=== PATIENT | female | born 1930 | race Caucasian/White ===

== ENCOUNTER 2019-08-06 19:23 | Inpatient (IN) | payer OTHER, BC ==
[2019-08-06 19:26] VITALS: BMI 14.6
--- NOTE | 2019-08-06 19:44 | PDOC ---
History of Present Illness - General Chief Complaint: Injury Stated Complaint: FALL Time Seen by Provider: 08/06/19 19:44 Past History - Past Medical History Allergies/Adverse Reactions: Allergies Allergy/AdvReac Type Severity Reaction Status Date / Time No Known Allergies Allergy Verified 08/06/19 19:24 Home Medications: Ambulatory Orders Amox-Tr/K Cl [Augmentin 500-125mg Tablet -] 1 tab PO BID #10 tablet 09/05/13 Aspirin [ASA -] 81 mg PO DAILY 09/05/13 Citalopram Hydrobromide [Celexa -] 10 mg PO DAILY 09/05/13 Finasteride [Propecia] 1 mg PO DAILY 09/05/13 Pantoprazole Sodium [Protonix -] 40 mg PO DAILY 09/05/13 Rivaroxaban [Xarelto -] 20 mg PO DAILY 09/05/13 Acetaminophen [Tylenol .Regular Strength -] 650 mg PO Q6H PRN tablet 08/07/19 Cardiac Disorders: Yes (A. Fib) CVA: Yes COPD: No HTN: Yes Hypercholesterolemia: Yes - Surgical History Cholecystectomy: Yes - Immunization History Immunization Up to Date: Yes - Suicide/Smoking/Psychosocial Hx Smoking Status: No Smoking History: Never smoked Number of Cigarettes Smoked Daily: 0 *Physical Exam - Vital Signs Last Vital Signs Temp Pulse Resp BP Pulse Ox 97.5 F L 80 18 180/72 H 97 08/06/19 19:25 08/06/19 19:25 08/06/19 19:25 08/06/19 19:25 08/06/19 19:25 ED Treatment Course - LABORATORY CBC & Chemistry Diagram: 08/07/19 06:55 08/07/19 06:55 Medical Decision Making - Medical Decision Making HPI: 88yo F with PMH of HTN, ?afib (on Xarelto) complaining of fall. Patient was accompanying her who was being evaluated in our ED. Patient was sitting in a chair when she was reaching for her handbag hanging on her walker when the chair tipped and she hit her head against either the wall or the equipment on the wall. Denies loss of consciousness, nausea, or vomiting. Reports she outstretched her arms to brace her fall and is feeling bialteral chest wall pain below her breasts. Denies prodrome before falling: no weakness, dizziness, chest pain, or shortness of breath. No fevers or chills. PCP: Dr. Montague ROS: Constitutional: no fever, no chills HEENT: no throat pain, no dysphagia Cardiovascular: +chest wall pain, no palpitations Respiratory: no cough, no shortness of breath Gastrointestinal: no abdominal pain, no nausea Genitourinary: no dysuria, no hematuria Musculoskeletal: no myalgia, no arthralgia Skin: no rash, no itching Neurologic: no headache, no weakness PE: General: Awake, alert, and fully oriented, in no acute distress Head: No signs of trauma Eyes: EOMI, sclera anicteric ENT: Moist mucus membranes Neck: Normal ROM, supple, no midline tenderness Lungs: Lungs clear, Normal breath sounds Cardio: Regular rhythm, S1 and S2 present Abdomen: Soft, nontender Extremities: Normal range of motion, Distal pulses present SKIN: Warm, Dry, normal turgor Neurologic: Cranial nerves II through XII intact. Normal speech, sensation, strength, coordination. Deferred gait exam. ED Course/MDM: DDX including but not limited to mechanical fall, vasovagal syncope, cardiogenic syncope, metabolic derangement, anemia Labs, EKG Bilateral rib series [facility] spirom[facility] 08/06/19 19:44 CBC WBC 5.5 K/mm3 (4.0-10.0) 08/06/19 21:41 RBC 3.54 M/mm3 (3.60-5.2) L 08/06/19 21:41 Hgb 8.6 GM/dL (10.7-15.3) L 08/06/19 21:41 Hct 26.8 % (32.4-45.2) L 08/06/19 21:41 MCV 75.5 fl (80-96) L 08/06/19 21:41 MCH 24.3 pg (25.7-33.7) L D 08/06/19 21:41 MCHC 32.2 g/dl (32.0-36.0) 08/06/19 21:41 RDW 20.6 % (11.6-15.6) H 08/06/19 21:41 Plt Count 222 K/MM3 (134-434) 08/06/19 21:41 MPV 7.8 fl (7.5-11.1) 08/06/19 21:41 Absolute Neuts (auto) 3.8 K/mm3 (1.5-8.0) 08/06/19 21:41 Neutrophils % 69.3 % (42.8-82.8) 08/06/19 21:41 Lymphocytes % 18.1 % (8-40) D 08/06/19 21:41 Monocytes % 12.1 % (3.8-10.2) H D 08/06/19 21:41 Eosinophils % 0.4 % (0-4.5) 08/06/19 21:41 Basophils % 0.1 % (0-2.0) 08/06/19 21:41 Nucleated RBC % 0 % (0-0) 08/06/19 21:41 No leukocytosis CMP Sodium 138 mmol/L (136-145) 08/06/19 21:41 Potassium 3.9 mmol/L (3.5-5.1) 08/06/19 21:41 Chloride 102 mmol/L (98-107) 08/06/19 21:41 Carbon Dioxide 32 mmol/L (21-32) 08/06/19 21:41 Anion Gap 5 MMOL/L (8-16) L 08/06/19 21:41 BUN 17.1 mg/dL (7-18) 08/06/19 21:41 Creatinine 0.7 mg/dL (0.55-1.3) 08/06/19 21:41 Est GFR (CKD-EPI)AfAm 89.66 08/06/19 21:41 Est GFR (CKD-EPI)NonAf 77.36 08/06/19 21:41 Random Glucose 108 mg/dL (74-106) H 08/06/19 21:41 Calcium 9.9 mg/dL (8.5-10.1) 08/06/19 21:41 Total Bilirubin 0.4 mg/dL (0.2-1) 08/06/19 21:41 AST 27 U/L (15-37) 08/06/19 21:41 ALT 24 U/L (13-61) 08/06/19 21:41 Alkaline Phosphatase 94 U/L (45-117) 08/06/19 21:41 Troponin I < 0.02 ng/ml (0.00-0.05) 08/06/19 21:41 Total Protein 7.0 g/dl (6.4-8.2) 08/06/19 21:41 Albumin 3.4 g/dl (3.4-5.0) 08/06/19 21:41 Electrolytes unremarkable Tpn undetectable Pending CT reports Pending radiographs 08/06/19 23:20 EKG: rate 75, QTc 464, NSR CT head: "There is no evidence of acute intracranial hemorrhage, mass lesions or infarctions. 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 There is a moderate degree of diffuse cerebral atrophy with sulcal widening and ventricular dilatation. There is no evidence of fracture or acute bony pathology. IMPRESSION: No evidence of acute intracranial pathology. " CT cspine: "Sequential axial images were obtained through the cervical spine from the base of the skull to the thoracic inlet. Coronal and sagittal reconstructed images were also performed. There is no evidence of fracture, subluxation or acute bony abnormalities. Moderately severe degenerative arthritic changes are noted diffusely, most marked at C5-6. The spinal canal is widely patent with no evidence of cord compromise. IMPRESSION: Moderately severe degenerative arthritis with no fracture or acute pathology. " Pending rib series 08/07/19 00:06 Plan for admission for repeat head CT 08/07/19 00:[address] Baltazar who accepted patient for admission under Dr. Cueva 08/07/19 01:24 *DC/Admit/Observation/Transfer Diagnosis at time of Disposition: Fall Qualifiers: Encounter type: initial encounter Qualified Code(s): W19.XXXA - Unspecified fall, initial encounter - Discharge Dispostion Condition at time of disposition: Stable Decision to Admit order: Yes - Referrals - Patient Instructions - Post Discharge Activity
--- NOTE | 2019-08-06 19:52 | PDOC ---
Attending Attestation - Resident Resident Name: Mindy Christensen - ED Attending Attestation I have performed the following: I have examined & evaluated the patient, The case was reviewed & discussed with the resident, I agree w/resident's findings & plan - HPI HPI: 08/06/19 22:00 see resident hpi - Physicial Exam PE: 08/06/19 22:00 agree with resident exam - Medical Decision Making 08/06/19 22:01 88 yo female s/p mechanical fall in ED whilw accompanying her due to head trauma and current xarelto use pt will held for obs CT head/labs
[2019-08-06] MEDS ORDERED: ACETAMINOPHEN 1000 MG/100 ML VIAL (NON FORMULARY) IVPB ONE (20:05)
[2019-08-06 21:58] LABS: BASO % 0.1 % (0-2.0); EOS % 0.4 % (0-4.5); HEMATOCRIT 26.8 % (32.4-45.2); HEMOGLOBIN 8.6 GM/dL (10.7-15.3); LYMPH % 18.1 % (8-40); MCH 24.3 pg (25.7-33.7); MCHC 32.2 g/dl (32.0-36.0); MEAN CELL VOLUME 75.5 fl (80-96); MEAN PLT VOLUME 7.8 fl (7.5-11.1); MONO % 12.1 % (3.8-10.2); NEUT % 69.3 % (42.8-82.8); PLATELET COUNT 222 K/MM3 (134-434); RBC 3.54 M/mm3 (3.60-5.2); RDW 20.6 % (11.6-15.6); WHITE BLOOD COUNT 5.5 K/mm3 (4.0-10.0)
[2019-08-06] MEDS ORDERED: ACETAMINOPHEN INJECTION 100 ML IVPB ONE (22:07)
[2019-08-06 22:19] LABS: INR 1.09 (0.83-1.09); PROTHROMBIN TIME (PATIENT) 12.9 SEC (9.7-13.0)
[2019-08-06 22:27] LABS: ALBUMIN 3.4 g/dl (3.4-5.0); BILIRUBIN,TOTAL 0.4 mg/dL (0.2-1); BLOOD UREA NITROGEN 17.1 mg/dL (7-18); CALCIUM 9.9 mg/dL (8.5-10.1); CREATININE 0.7 mg/dL (0.55-1.3); POTASSIUM 3.9 mmol/L (3.5-5.1)
[2019-08-06 23:24] LABS: ANISOCYTOSIS 2+
[2019-08-06 23:28] LABS: PLATELET ESTIMATE ADEQUATE
[2019-08-07 00:25] VITALS: PULSE 78
[2019-08-07] MEDS ORDERED: ACETAMINOPHEN 325 MG TABLET (FP) PO PRN (03:18)
--- NOTE | 2019-08-07 03:19 | HP ---
CHIEF COMPLAINT:fall PCP:Dr. Montague HISTORY OF PRESENT ILLNESS: Patient is an 88 year old female with past medical history of A.fib (on Xarelto ) and HTN presented to the ED due to fall. Patient was accompanying her who was brought to our ED after a recent fall at home. While waiting for her , patient tried to reach for bag while hanging on to her walker when the chair she was sitting on tipped and patient subsequently fell, hitting the back of her head against the wall and her chest hitting on to another chair. Patient denies any headache, dizziness, chest pain, SOB, weakness or numbness before and after she fell, but reports bilateral chest wall pain below her breasts. Of note, patient also reported recent bilateral leg swelling that started about 3-4 months ago. Patient has not seen a doctor for a long time as she reports being busy taking care of her 's medical needs. Patient denies any fever , chills, headache, chest pain, SOB, abdominal pain, diarrhea, urinary symptoms. ER course was notable for: (1)Head CT: no acute intracranial pathology (2)Cervical CT: moderately severe degenerative arthritis with no fracture or acute pathology. (3) Recent Travel:denies PAST MEDICAL HISTORY: A. fib HTN PAST SURGICAL HISTORY: Left hip replacement Social History: Smoking: denies Alcohol:denies Drugs: denies Family History:unknown Allergies No Known Allergies Allergy (Verified 08/06/19 19:24) HOME MEDICATIONS: Home Medications Medication Instructions Recorded Amox-Tr/K Cl [Augmentin 500Mg 1 tab PO BID #10 tablet 09/05/13 Tablet] Aspirin [ASA -] 81 mg PO DAILY 09/05/13 Citalopram Hydrobromide [Celexa -] 10 mg PO DAILY 09/05/13 Finasteride [Propecia] 1 mg PO DAILY 09/05/13 Pantoprazole Sodium [Protonix] 40 mg PO DAILY 09/05/13 Rivaroxaban [Xarelto] 20 mg PO DAILY 09/05/13 REVIEW OF SYSTEMS CONSTITUTIONAL: Absent: fever, chills, diaphoresis, generalized weakness, malaise, loss of appetite, weight change HEENT: Absent: rhinorrhea, nasal congestion, throat pain, throat swelling, difficulty swallowing, mouth swelling, ear pain, eye pain, visual changes CARDIOVASCULAR: Absent: chest pain, syncope, palpitations, irregular heart rate, lightheadedness , peripheral edema RESPIRATORY: Absent: cough, shortness of breath, dyspnea with exertion, orthopnea, wheezing, stridor, hemoptysis GASTROINTESTINAL: Absent: abdominal pain, abdominal distension, nausea, vomiting, diarrhea, constipation, melena, hematochezia GENITOURINARY: Absent: dysuria, frequency, urgency, hesitancy, hematuria, flank pain, genital pain MUSCULOSKELETAL: Absent: myalgia, arthralgia, joint swelling, back pain, neck pain SKIN: Absent: rash, itching, pallor HEMATOLOGIC/IMMUNOLOGIC: Absent: easy bleeding, easy bruising, lymphadenopathy, frequent infections ENDOCRINE: Absent: unexplained weight gain, unexplained weight loss, heat intolerance, cold intolerance NEUROLOGIC: Absent: headache, focal weakness or paresthesias, dizziness, unsteady gait, seizure, mental status changes, bladder or bowel incontinence PSYCHIATRIC: Absent: anxiety, depression, suicidal or homicidal ideation, hallucinations. PHYSICAL EXAMINATION Vital Signs - 24 hr 08/06/19 08/06/19 08/07/19 19:25 19:30 00:24 Temperature 97.5 F L Pulse Rate 80 Pulse Rate [ 78 Right Radial] Respiratory 18 18 Rate Blood Pressure 180/72 H Blood Pressure 171/84 H [Left Arm] O2 Sat by Pulse 97 100 91 L Oximetry (%) GENERAL: Awake, alert, and fully oriented, in no acute distress. HEAD: Normal with no signs of trauma. EYES: PERRLA, EOMI, sclera anicteric, conjunctiva clear. EARS, NOSE, THROAT: Moist mucous membranes. NECK: Normal range of motion, supple without lymphadenopathy, JVD, or masses. LUNGS: Breath sounds equal, clear to auscultation bilaterally. HEART: Regular rate and rhythm, normal S1 and S2, +holosystolic murmur at RUSB/ LUSB ABDOMEN: Soft, nontender, not distended, normoactive bowel sounds. MUSCULOSKELETAL: Normal range of motion at all joints. UPPER EXTREMITIES: 2+ pulses, warm, well-perfused. No peripheral edema. LOWER EXTREMITIES: 2+ pulses, warm, well-perfused. +1 bilateral pitting edema, R >L NEUROLOGICAL: Cranial nerves II-XII intact. Normal speech. Gait not observed. PSYCHIATRIC: Cooperative. Good eye contact. Appropriate mood and affect. SKIN: Warm, dry, normal turgor. Laboratory Results - last 24 hr 08/06/19 08/06/19 08/06/19 21:41 21:41 21:41 WBC 5.5 RBC 3.54 L Hgb 8.6 L Hct 26.8 L MCV 75.5 L MCH 24.3 L D MCHC 32.2 RDW 20.6 H Plt Count 222 MPV 7.8 Absolute Neuts (auto) 3.8 Neutrophils % 69.3 Lymphocytes % 18.1 D Monocytes % 12.1 H D Eosinophils % 0.4 Basophils % 0.1 Nucleated RBC % 0 Platelet Estimate Adequate Anisocytosis 2+ Schistocytes 1+ PT with INR 12.90 INR 1.09 PTT (Actin FS) 35.0 Sodium 138 Potassium 3.9 Chloride 102 Carbon Dioxide 32 Anion Gap 5 L BUN 17.1 Creatinine 0.7 Est GFR (CKD-EPI)AfAm 89.66 Est GFR (CKD-EPI)NonAf 77.36 Random Glucose 108 H Calcium 9.9 Total Bilirubin 0.4 AST 27 ALT 24 Alkaline Phosphatase 94 Troponin I Total Protein 7.0 Albumin 3.4 08/06/19 21:41 WBC RBC Hgb Hct MCV MCH MCHC RDW Plt Count MPV Absolute Neuts (auto) Neutrophils % Lymphocytes % Monocytes % Eosinophils % Basophils % Nucleated RBC % Platelet Estimate Anisocytosis Schistocytes PT with INR INR PTT (Actin FS) Sodium Potassium Chloride Carbon Dioxide Anion Gap BUN Creatinine Est GFR (CKD-EPI)AfAm Est GFR (CKD-EPI)NonAf Random Glucose Calcium Total Bilirubin AST ALT Alkaline Phosphatase Troponin I < 0.02 Total Protein Albumin ASSESSMENT/PLAN: Patient is an 88 year old female with past medical history of A.fib (on Xarelto ) and HTN presented to the ED due to fall. #Mechanical Fall -Head CT and Cervical spine CT: no acute intracranial pathology -Rib xray done, pending final read -will give Tylenol PRN for pain -Incentive spirometry -Neuro checks -Fall precautions -Physical therapy -Consider repeat head CT in 24h #Bilateral LE swelling -will order Echo -unlikely DVT as patient in on Xarelto, but will order duplex #Microcytic anemia -baseline Hgb 10 (2012) -will further evaluate with FOBT, iron studies, retic count #Hypertension -continue home meds #Atrial fibrillation -Continue Xarelto 20mg daily #FEN -Not on any standing fluids -Electrolytes wnl, routine bmp monitoring -Sodium restricted diet #Prophylaxis -On Xarelto #Disposition -full code -admit to med surg Visit type - Emergency Visit Emergency Visit: Yes ED Registration Date: 08/07/19 Care time: The patient presented to the Emergency Department on the above date and was hospitalized for further evaluation of their emergent condition. - New Patient This patient is new to me today: Yes Date on this admission: 08/07/19 - Critical Care Critical Care patient: No ATTENDING PHYSICIAN STATEMENT I saw and evaluated the patient. I reviewed the resident's note and discussed the case with the resident. I agree with the resident's findings and plan as documented. SUBJECTIVE: OBJECTIVE: ASSESSMENT AND PLAN:
--- NOTE | 2019-08-07 04:08 | PN ---
Teaching Attending Note Name of Resident: Comfort Peterson ATTENDING PHYSICIAN STATEMENT I saw and evaluated the patient. I reviewed the resident's note and discussed the case with the resident. I agree with the resident's findings and plan as documented. SUBJECTIVE: 88 year old female with past medical history of A.fib (on Xarelto) and HTN was accompanying her who was brought to our ED after a recent fall at home, and sustained a fall in the ER herself. She said she fell out of her chair. Unable to describe her fall exactly to me. Reports some upper abdominal pain. Denied any palpitations, LOC, or trauma to head OBJECTIVE: Last Vital Signs Temp Pulse Resp BP Pulse Ox 97.5 F L 78 18 171/84 H 91 L 08/06/19 19:25 08/07/19 00:24 08/07/19 00:24 08/07/19 00:24 08/07/19 00:24 heent-atrauamtic neck- no midline tenderness abdomen - slight distention, soft, nt ext- some left hip pain, b/l pedal edema R>L Abnormal Lab Results 08/06/19 08/06/19 21:41 21:41 RBC 3.54 L Hgb 8.6 L Hct 26.8 L MCV 75.5 L MCH 24.3 L D RDW 20.6 H Monocytes % 12.1 H D Anion Gap 5 L Random Glucose [address]: no acute intracranial pathology Cervical CT: moderately severe degenerative arthritis with no fracture or acute pathology. ASSESSMENT AND PLAN: #S/p fall -Head CT and Cervical spine CT: no acute intracranial pathology. some left hip tenderness- r/o fracture -left hip xray t/o r/o fracture -Physical therapy request -bed rest -fall precautions #Bilateral LE swelling r>L -Echo -duplex u/s - r/o dvt #Atrial fibrillation -Continue Xarelto 20mg daily- dvt ppx too -consider to d/c ac as patient has fall and at risk for bleed #Microcytic anemia-chronic -ferrous sulfate -ascertain if pt had recent colonsocopy- might benefit from screening, despite advanced age
[2019-08-07 05:06] VITALS: BP 162/90; TEMP 98.3
[2019-08-07] MEDS ORDERED: ACETAMINOPHEN 325 MG TABLET (FP) ONE ×2 (05:19→14:06)
[2019-08-07 08:08] LABS: BASO % 0.4 % (0-2.0); EOS % 0.8 % (0-4.5); HEMATOCRIT 25.4 % (32.4-45.2); HEMOGLOBIN 8.2 GM/dL (10.7-15.3); LYMPH % 16.4 % (8-40); MCH 24.4 pg (25.7-33.7); MCHC 32.3 g/dl (32.0-36.0); MEAN CELL VOLUME 75.5 fl (80-96); MEAN PLT VOLUME 8.1 fl (7.5-11.1); MONO % 11.9 % (3.8-10.2); NEUT % 70.5 % (42.8-82.8); PLATELET COUNT 198 K/MM3 (134-434); RBC 3.37 M/mm3 (3.60-5.2); RDW 20.3 % (11.6-15.6); WHITE BLOOD COUNT 4.8 K/mm3 (4.0-10.0)
[2019-08-07 08:39] LABS: ALBUMIN 2.9 g/dl (3.4-5.0); BILIRUBIN,TOTAL 0.4 mg/dL (0.2-1); BLOOD UREA NITROGEN 16.1 mg/dL (7-18); CALCIUM 8.4 mg/dL (8.5-10.1); CREATININE 0.6 mg/dL (0.55-1.3); MAGNESIUM 2.3 mg/dL (1.8-2.4); PHOSPHOROUS 3.4 mg/dL (2.5-4.9); POTASSIUM 3.9 mmol/L (3.5-5.1)
--- NOTE | 2019-08-07 11:59 | ECHO ---
Name: MONROE HUGGINS Exam:Adult Echocardiogram Study Date: 08/07/2019 08:09 AM Age: 88 yrs Reason For Study: R/O CHF Height: 62 in Weight: 80 lb BSA: 1.3 m2 MMode/2D Measurements & Calculations IVSd: 1.2 cm Ao root diam: 2.6 cm LVIDd: 4.2 cm LA dimension: 4.3 cm LVIDs: 2.9 cm LVPWd: 0.78 cm EDV(Teich): 76.5 ml LVOT diam: 1.9 cm ESV(Teich): 31.6 ml LAV (MOD-bp): 72.0 ml Doppler Measurements & Calculations MV E max eduardo: 69.1 cm/sec Ao V2 max: 174.8 cm/sec MV A max eduardo: 28.6 cm/sec Ao max P.2 mmHg MV E/A: 2.4 Ao V2 mean: 125.5 cm/sec MV dec time: 0.15 sec Ao mean P.9 mmHg Ao V2 VTI: 42.9 cm ROCKY(I,D): 1.6 cm2 AI P1/2t: 695.0 msec ROCKY(V,D): 1.7 cm2 AI max eduardo: 497.5 cm/sec LV V1 max P.6 mmHg AI max P.0 mmHg LV V1 mean P.2 mmHg AI dec slope: 209.7 cm/sec2 LV V1 max: 106.8 cm/sec LV V1 mean: 70.0 cm/sec LV V1 VTI: 24.1 cm MR max eduardo: 583.0 cm/sec SV(LVOT): 68.5 ml MR max P.3 mmHg TR max eduardo: 260.9 cm/sec Med Peak E' Eduardo: 2.7 cm/sec TR max P.7 mmHg Med E/e': 25.2 Lat Peak E' Eduardo: 7.2 cm/sec Lat E/e': 9.5 Procedure A complete two-dimensional transthoracic echocardiogram was performed (2D, M-mode, Doppler and color flow Doppler). Left Ventricle The left ventricular size, thickness and function are normal. The left ventricular ejection fraction is normal. Ejection Fraction = 60-65%. The left ventricular wall motion is normal. Right Ventricle The right ventricle is normal in size and function. Atria The left atrium is moderately dilated. Right atrial size is normal. Mitral Valve There is mild mitral regurgitation. Tricuspid Valve There is mild tricuspid regurgitation. Right ventricular systolic pressure is normal. Aortic Valve No hemodynamically significant valvular aortic stenosis. Mild aortic regurgitation. Pulmonic Valve There is no pulmonic valvular regurgitation. Great Vessels The aortic root is normal size. Pericardium/Pleura There is no pericardial effusion. Interpretation Summary The left ventricular size, thickness and function are normal The right ventricle is normal in size and function. The left atrium is moderately dilated. There is mild mitral regurgitation. There is mild tricuspid regurgitation. Mild aortic regurgitation. MD Lele Degroot 08/07/2019 11:59 AM
--- NOTE | 2019-08-07 14:04 | EKG ---
Test Reason : Blood Pressure : / mmHG Vent. Rate : 075 BPM Atrial Rate : 075 BPM P-R Int : 136 ms QRS Dur : 076 ms QT Int : 416 ms P-R-T Axes : 020 017 028 degrees QTc Int : 464 ms NORMAL SINUS RHYTHM ANTERIOR INFARCT (CITED ON OR BEFORE 05-SEP-2013) ABNORMAL ECG WHEN COMPARED WITH ECG OF 05-SEP-2013 01:14, VENT. 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
--- NOTE | 2019-08-07 16:39 | DS ---
Physical Exam: SUBJECTIVE: Patient seen and examined; no new complaints. She is more orientated than her at [facility]. Her son and I met for some time and we discussed her functional status. 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 He wishes to take her back to her LONGTERM. She was cleared by PT. She was cleared by physical therapy and walked 60 feet. She has no swallowing difficulties. There is no syncopal elements to her fall. 10 sys ROS done and negative aside from HPI PMH, PSH, FH asked and noncontributory, social history reviewed (no tobacco, drugs, EtOH) OBJECTIVE: Vital Signs Period Temp Pulse Resp BP Sys/Armstrong Pulse Ox Last 24 Hr 97.5 F-98.3 F 78-80 18-18 162-180/72-90 89-100 PHYSICAL EXAM GENERAL: The patient is awake, alert, and fully oriented HEAD: Normal with no signs of trauma. EYES: PERRL, extraocular movements intact, ENT: Ears normal, nares patent, oropharynx NECK: Trachea midline, full range of motion, supple. LUNGS: Breath sounds equal, clear to auscultation bilaterall HEART: Regular rate and rhythm, S1, S2 without murmur, rub or gallop. ABDOMEN: Soft, nontender, nondistended, EXTREMITIES: 2+ pulses, warm, well-perfused, no edema. NEUROLOGICAL: Cranial nerves II through XII grossly intact, no FND noted, speech fluid PSYCH: Normal mood, normal affect. Organic dementia evident. SKIN: Warm, dry, normal turgor. LABS Laboratory Results - last 24 hr 08/06/19 08/06/19 08/06/19 21:41 21:41 21:41 WBC 5.5 RBC 3.54 L Hgb 8.6 L Hct 26.8 L MCV 75.5 L MCH 24.3 L D MCHC 32.2 RDW 20.6 H Plt Count 222 MPV 7.8 Absolute Neuts (auto) 3.8 Neutrophils % 69.3 Lymphocytes % 18.1 D Monocytes % 12.1 H D Eosinophils % 0.4 Basophils % 0.1 Nucleated RBC % 0 Platelet Estimate Adequate Anisocytosis 2+ Schistocytes 1+ Retic Count PT with INR 12.90 INR 1.09 PTT (Actin FS) 35.0 Sodium 138 Potassium 3.9 Chloride 102 Carbon Dioxide 32 Anion Gap 5 L BUN 17.1 Creatinine 0.7 Est GFR (CKD-EPI)AfAm 89.66 Est GFR (CKD-EPI)NonAf 77.36 Random Glucose 108 H Calcium 9.9 Phosphorus Magnesium Iron TIBC Iron Saturation Unsaturated IBC Ferritin Total Bilirubin 0.4 AST 27 ALT 24 Alkaline Phosphatase 94 Troponin I Total Protein 7.0 Albumin 3.4 TSH 08/06/19 08/07/19 08/07/19 21:41 06:55 06:55 WBC 4.8 RBC 3.37 L Hgb 8.2 L Hct 25.4 L MCV 75.5 L MCH 24.4 L MCHC 32.3 RDW 20.3 H Plt Count 198 MPV 8.1 Absolute Neuts (auto) 3.4 Neutrophils % 70.5 Lymphocytes % 16.4 Monocytes % 11.9 H Eosinophils % 0.8 D Basophils % 0.4 D Nucleated RBC % 0 Platelet Estimate Anisocytosis Schistocytes Retic Count PT with INR INR PTT (Actin FS) Sodium 138 Potassium 3.9 Chloride 104 Carbon Dioxide 28 Anion Gap 5 L BUN 16.1 Creatinine 0.6 Est GFR (CKD-EPI)AfAm 94.32 Est GFR (CKD-EPI)NonAf 81.38 Random Glucose 89 Calcium 8.4 L Phosphorus 3.4 Magnesium 2.3 Iron TIBC Iron Saturation Unsaturated IBC Ferritin Total Bilirubin 0.4 AST 23 ALT 17 Alkaline Phosphatase 82 Troponin I < 0.02 Total Protein 6.0 L Albumin 2.9 L TSH 2.05 08/07/19 08/07/19 06:55 06:55 WBC RBC Hgb Hct MCV MCH MCHC RDW Plt Count MPV Absolute Neuts (auto) Neutrophils % Lymphocytes % Monocytes % Eosinophils % Basophils % Nucleated RBC % Platelet Estimate Anisocytosis Schistocytes Retic Count 1.91 H PT with INR INR PTT (Actin FS) Sodium Potassium Chloride Carbon Dioxide Anion Gap BUN Creatinine Est GFR (CKD-EPI)AfAm Est GFR (CKD-EPI)NonAf Random Glucose Calcium Phosphorus Magnesium Iron 25 L TIBC 355 Iron Saturation 7 L Unsaturated IBC 330 H Ferritin 13.4 Total Bilirubin AST ALT Alkaline Phosphatase Troponin I Total Protein Albumin TSH HOSPITAL COURSE: Patient suddenly and unexpectedly improved and was able to be discharged home within 24 hours of admission Date of Admission:08/07/19 Date of Discharge: 08/07/19 Minutes to complete discharge: 33 Discharge Summary Reason For Visit: FALL Current Active Problems Fall (Acute) Condition: Guarded - Instructions - Home Medications Comprehensive Discharge Medication List: Ambulatory Orders Amox-Tr/K Cl [Augmentin 500Mg Tablet] 1 tab PO BID #10 tablet 09/05/13 Aspirin [ASA -] 81 mg PO DAILY 09/05/13 Citalopram Hydrobromide [Celexa -] 10 mg PO DAILY 09/05/13 Finasteride [Propecia] 1 mg PO DAILY 09/05/13 Pantoprazole Sodium [Protonix] 40 mg PO DAILY 09/05/13 Rivaroxaban [Xarelto] 20 mg PO DAILY 09/05/13 This patient is new to me today: Yes Date on this admission: 08/07/19 Emergency Visit: Yes ED Registration Date: 08/07/19 Care time: The patient presented to the Emergency Department on the above date and was hospitalized for further evaluation of their emergent condition. Critical Care patient: No - Discharge Referral Referred to [facility] No
== END 2019-08-07 17:00 | disposition home or self-care (01) | DRG 313 ==
LOC: JER 19:23 → JERBED 08-07 01:26
PROVIDERS: ADMIT Internal Medicine; ATTEND Internal Medicine
DX: R07.89 Other chest pain (principal); R10.9 Unspecified abdominal pain; I10 Essential (primary) hypertension; I48.91 Unspecified atrial fibrillation; M46.92 Unspecified inflammatory spondylopathy, cervical region; M79.89 Other specified soft tissue disorders; D50.9 Iron deficiency anemia, unspecified; W07.XXXA Fall from chair, initial encounter
CPT/HCPCS: 36415; 70450-TC; 71111-TC-FY; 72125-TC; 80053; 82728; 83540; 83550; 83735; 84100; 84443; 84484; 85025; 85044; 85610; 85730; 93005; 93010; 93306-TC; 93971-TC; 97116-GP; 97162-GP; 99284-25; J0131

== ENCOUNTER 2019-10-30 14:18 | Inpatient (IN) | payer OTHER, BC ==
--- NOTE | 2019-10-30 15:01 | PDOC ---
History of Present Illness - General Chief Complaint: Edema Stated Complaint: DEHYDATION, SWELLING OF THE FOOT Time Seen by Provider: 10/30/19 14:40 History Source: Patient Exam Limitations: No Limitations - History of Present Illness Initial Comments: Iliana Polanco is an 88 yo F w a hx of HTN and A-fib on xarelto who presents to the [facility] er BIBEMS from [address] [place] [address] because she has been experiencing 2 weeks of progressive bilateral leg swelling and edema. She states that she has also been extremely tired and short of breath doing her daily activities. She is most worried because her legs have never swelled up like this in the past and now her legs are painful and it is hard for her to walk. She states she is able to lie flat at night and has not needed more pillows recently. Denies having experienced any chest pain or shortness of breath at any point. She does endorse generalized fatigue and difficulty performing her routine physical activities. PCP: Dr. Montague Cards: Dr. Cardenas PSH: Left hip replacement Social Hx: Resident of [address] [place] [address]. Denies smoking, drinking, or other substance abuse Allergies: NKA, NKDA Past History - Past Medical History Allergies/Adverse Reactions: Allergies Allergy/AdvReac Type Severity Reaction Status Date / Time No Known Allergies Allergy Verified 10/30/19 15:47 Home Medications: Ambulatory Orders Citalopram Hydrobromide [Celexa -] 10 mg PO DAILY 09/05/13 Finasteride [Propecia] 1 mg PO DAILY 09/05/13 Rivaroxaban [Xarelto -] 20 mg PO DAILY 09/05/13 Acetaminophen [Tylenol .Regular Strength -] 650 mg PO Q6H PRN tablet 08/07/19 Cetirizine HCl [Zyrtec -] 10 mg PO HS 10/30/19 Famotidine 20 mg PO DAILY 10/30/19 Ferrous Sulfate 325 mg PO DAILY 10/30/19 Flecainide Acetate [Tambacor -] 50 mg PO BID 10/30/19 Hydrochlorothiazide 25 mg PO DAILY 10/30/19 Losartan Potassium 50 mg PO DAILY 10/30/19 Meloxicam [Mobic] 15 mg PO DAILY 10/30/19 Multivit-Min/FA/Lycopen/Lutein [Centrum Silver Tablet] 1 each PO DAILY 10/30/19 Cardiac Disorders: Yes (A. Fib) CVA: Yes COPD: No HTN: Yes Hypercholesterolemia: Yes - Surgical History Cholecystectomy: Yes - Immunization History Immunization Up to Date: Yes - Psycho Social/Smoking Cessation Hx Smoking Status: No Smoking History: Never smoked Number of Cigarettes Smoked Daily: 0 Review of Systems - Review of Systems Able to Perform ROS?: Yes Comments:: CONSTITUTIONAL: Present: Fatigue Absent: fever, no chills EYES: Absent: visual changes ENT: Absent: ear pain, no sore throat CARDIOVASCULAR: Absent: chest pain, no palpitations RESPIRATORY: Absent: cough, no SOB GI: Absent: abdominal pain, no nausea, no vomiting, no constipation, no diarrhea GENITOURINARY: Absent: dysuria, no frequency, no hematuria MUSKULOSKELETAL: Present: Arthralgia Absent: back pain, no myalgia SKIN: Present: rash NEURO: Absent: headache *Physical Exam - Physical Exam GENERAL: Skinny, elderly frail lady. Well developed, well nourished. Awake and alert. Mild distress. HEENT: Normocephalic, atraumatic. PERRLA, EOMI. No conjunctival pallor. Sclera are non- icteric. Moist mucous membranes. Oropharynx is clear. NECK: Supple. Full ROM. No JVD. CARDIOVASCULAR: Irregularly irregular. No murmurs, rubs, or gallops. Distal pulses are 2+ and symmetric. PULMONARY: There are bilateral crackles at the bases. Mild evidence of respiratory distress. Limited inspiration. No wheezing or rhonchi ABDOMINAL: Soft. Non-tender. Non-distended. No rebound or guarding. No organomegaly. Normoactive bowel sounds. MUSCULOSKELETAL Limited range of motion at all joints. No bony deformities or tenderness. No CVA tenderness. EXTREMITIES: 2+ edema in both legs. No cyanosis. No clubbing. No calf tenderness. SKIN: Left leg white scaly rash. Warm and dry. Normal capillary refill. No jaundice. NEUROLOGICAL: Alert, awake, appropriate. Cranial nerves 2-12 intact. Normal speech. PSYCHIATRIC: Sad affect. Cooperative. Good eye contact. Appropriate mood. ED Treatment Course - LABORATORY CBC & Chemistry Diagram: 10/30/19 15:25 10/30/19 15:25 - RADIOLOGY Radiograph Interpretation: CXR: Single view chest Chest pain to evaluate for infiltrate Comparison 09/05/2013 The lungs have changed and demonstrate increased markings since 2012. More recent imaging from 08/07 is reviewed demonstrating progression and worsening which could be due to developing fluid in the bases with compressive atelectasis. The left diaphragm is obscured with increased density in the left lower lobe. Left lower lobe pneumonia could have a similar appearance. Mild prominence of the interstitial markings. Congestive changes are seen. Impression: Congestive changes with bibasilar effusions the degree of atelectasis and consolidation is suspicious in the left lower lobe and is suspicious for pneumonia in the right clinical setting. Duplex: BILATERAL LOWER EXTREMITY VENOUS ULTRASOUND Clinical information given: evaluate for DVT The exam was performed utilizing compression, grayscale, color flow and doppler sonography. There is no sonographic evidence of deep vein thrombosis. If there is clinical concern for possible isolated calf DVT or if there is a clinical diagnosis of uncomplicated superficial thrombophlebitis, then correlation with close follow up sonography is suggested. IMPRESSION: No DVT is identified involving either leg. Please see above. BILATERAL LOWER EXTREMITY ARTERIAL DOPPLER ULTRASOUND Clinical information: evaluate for arterial occlusion The exam was performed utilizing grayscale and Doppler sonography. Evaluation of the right leg demonstrates no definite flow within the common femoral, superficial femoral, or posterior tibial arteries. There is decreased monophasic flow within the popliteal artery. Evaluation of the left leg demonstrates no definite flow within the popliteal or posterior tibial arteries. There is decreased monophasic flow within the lower third of the superficial femoral artery with somewhat decreased biphasic flow within the upper and middle thirds of the superficial femoral artery. Unremarkable triphasic flow is seen within the common femoral artery. 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 There is decreased monophasic flow within the right popliteal artery. There are also findings suggestive of occlusion of the left popliteal and posterior tibial arteries. There is decreased monophasic flow within the lower third of the left superficial femoral artery. Medical Decision Making - Medical Decision Making Iliana Polanco is an 88 yo F w a hx of HTN and A-fib on xarelto who presents to the [facility] from [facility] because she has been experiencing 2 weeks of progressive bilateral leg swelling and edema. She states that she has also been extremely tired and short of breath doing her daily activities. She is most worried because her legs have never swelled up like this in the past and now her legs are painful and it is hard for her to walk. She states she is able to lie flat at night and has not needed more pillows recently. Denies having experienced any chest pain or shortness of breath at any point. She does endorse generalized fatigue and difficulty performing her routine physical activities. Vital Signs Temp Pulse Resp BP Pulse Ox 97.7 F 87 18 153/88 100 10/30/19 14:52 10/30/19 14:52 10/30/19 14:52 10/30/19 14:52 10/30/19 14:52 DDx IBNLT: Heart failure, ACS, pneumothorax, pulm edema/pleural effusion, electrolyte/metabolic disturbance, DVT, UTI Plan: Labs, Urine, CXR, POCUS, EKG, Duplex, re-assess Labs: Elevated BNP suggestive of heart failure. Urine: Suggests UTI Pocus: b/l B-lines CXR: Impression: Congestive changes with bibasilar effusions the degree of atelectasis and consolidation is suspicious in the left lower lobe and is suspicious for pneumonia in the right clinical setting. EKG: QTc 515 Duplex: Suggests arterial occlusion - Vascular surgery paged Disposition: Tele admission Discharge - Discharge Information Problems reviewed: Yes Clinical Impression/Diagnosis: Heart failure Qualifiers: Heart failure type: unspecified Heart failure chronicity: unspecified Qualified Code(s): I50.9 - Heart failure, unspecified UTI (urinary tract infection) Qualifiers: Urinary tract infection type: site unspecified Hematuria presence: without hematuria Qualified Code(s): N39.0 - Urinary tract infection, site not specified Condition: Stable - Admission Yes - Follow up/Referral - Patient Discharge Instructions - Post Discharge Activity
[2019-10-30 15:42] LABS: BASO % 0.2 % (0-2.0); EOS % 0.4 % (0-4.5); HEMATOCRIT 31.1 % (32.4-45.2); HEMOGLOBIN 9.9 GM/dL (10.7-15.3); LYMPH % 14.5 % (8-40); MCH 26.3 pg (25.7-33.7); MCHC 31.7 g/dl (32.0-36.0); MEAN CELL VOLUME 82.8 fl (80-96); MEAN PLT VOLUME 8.9 fl (7.5-11.1); MONO % 12.2 % (3.8-10.2); NEUT % 72.7 % (42.8-82.8); PLATELET COUNT 152 K/MM3 (134-434); RBC 3.76 M/mm3 (3.60-5.2); RDW 25.3 % (11.6-15.6); WHITE BLOOD COUNT 5.8 K/mm3 (4.0-10.0)
[2019-10-30 16:19] LABS: ALBUMIN 3.2 g/dl (3.4-5.0); ALK PHOS 144 U/L (45-117); ANION GAP 8 MMOL/L (8-16); BILIRUBIN,TOTAL 0.7 mg/dL (0.2-1); BLOOD UREA NITROGEN 13.8 mg/dL (7-18); CALCIUM 9.1 mg/dL (8.5-10.1); CHLORIDE 104 mmol/L (98-107); CO2 25 mmol/L (21-32); CREATININE 0.5 mg/dL (0.55-1.3); GLUCOSE,RANDOM 82 mg/dL (74-106); MAGNESIUM 2.7 mg/dL (1.8-2.4); N-TERMINAL BNP 9497.5 pg/ml (5-450); POTASSIUM 3.9 mmol/L (3.5-5.1); SGOT/AST 42 U/L (15-37); SGPT/ALT 95 U/L (13-61); SODIUM 137 mmol/L (136-145); TOT PROT 6.6 g/dl (6.4-8.2)
--- NOTE | 2019-10-30 16:22 | PDOC ---
Attending Attestation - Resident Resident Name: Michi Laws - ED Attending Attestation I have performed the following: I have examined & evaluated the patient, The case was reviewed & discussed with the resident, I agree w/resident's findings & plan - HPI HPI: 10/30/19 16:21 Iliana Polanco is an 88 yo F w a hx of HTN and A-fib on xarelto who presents to the [facility] er [facility]S from [facility] because she has been experiencing 2 weeks of progressive bilateral leg swelling and edema, a/w dyspnea on exertion and abdominal bloating. She states that she has also been extremely tired/ malaise and short of breath doing her daily activities. No orthopnea, She states she is able to lie flat at night and has not needed more pillows recently. no f/c, no chest pain, syncope or dizziness. 10/30/19 16:24 10/30/19 18:04 - Physicial Exam PE: 10/30/19 16:22 Agree with the resident's HPI and PE as documented in the electronic medical record. NAD, well appearing, EOMI, PERRL, nl conjunctiva, anicteric; neck supple. lungs with bilateral crackles. RRR, abdomen soft nontender. no rebound, guarding. Back nontender. SY x4, no focal neuro deficits. +bilateral pitting peripheral edema. normal color for ethnicity, WWP. +mild calf tenderness. 10/30/19 18:04 - Medical Decision Making 10/30/19 16:22 Vital Signs Temp Pulse Resp BP Pulse Ox 97.7 F 87 18 153/88 100 10/30/19 14:52 10/30/19 14:52 10/30/19 14:52 10/30/19 14:52 10/30/19 14:52 Differential diagnosis includes lymphedema, DVT, CHF, renal insufficiency Laboratory results compare with previous with baseline anemia no acute changes, electrolytes are normal, creatinine is normal BNP is elevated greater than 9497 cxr with bilateral pulm vascular congestion lasix IV 40mg x1, cr ok. treating as new onset CHF ua prelim infection, f/u cultures, IV ceftriaxone x 1 dose now prelim duplex neg for DVT, There is concern for occlusion of the right [employer], SFA, TDP DISPLAYS ANALYST with decreased monophasic flow within the right popliteal artery, also occlusion of the left popliteal artery, left posterior tibial arteries, decreased monophasic flow within the lower third of the left SFA We will consult vascular for arterial occlusions, she is neurovascularly intact , warm and well perfused, this is likely chronic but will need vascular evaluation and intervention. Dr Ortega environmental technical officer admit to tele, CHF, PVD, cards cs, medical management, diuresis, supportive care. 10/30/19 16:26 10/30/19 18:05 10/30/19 18:05 10/30/19 18:07
[2019-10-30 16:23] LABS: EPI CELLS 1.4 /HPF (0-5/HPF); HYALINE CASTS 3 /lpf (0-8); PH,URINE 6.5 (5.0-8.0); URINE APPEARANCE CLEAR; URINE BACTERIA 2244.9 /hpf (NEGATIVE); URINE BILIRUBIN NEGATIVE (NEGATIVE); URINE COLOR YELLOW; URINE GLUCOSE (UA) NEGATIVE (NEGATIVE); URINE KETONE NEGATIVE (NEGATIVE); URINE LEUK ESTERASE TRACE (NEGATIVE); URINE NITRITE POSITIVE (NEGATIVE); URINE PROTEIN NEGATIVE (NEGATIVE); URINE RBC 5 /hpf (0-4); URINE WBC 3 /hpf (0-5)
[2019-10-30] MEDS ORDERED: CEFTRIAXONE 1,000 MG in DEXTROSE 5%-WATER - 50 ML IVPB ONE (16:26)
[2019-10-30] MEDS ORDERED: FUROSEMIDE 40 MG/4 ML INJECTABLE VIAL IVPUSH ONE (16:26)
[2019-10-30 16:30] LABS: INR 1.43 (0.83-1.09); PROTHROMBIN TIME (PATIENT) 16.9 SEC (9.7-13.0)
[2019-10-30 16:32] LABS: ACTIVATED PTT 35.8 SECONDS (25.2-36.5)
[2019-10-30 16:51] LABS: ANISOCYTOSIS 3+; MACROCYTOSIS 0; OVALOCYTE 1+; PLATELET ESTIMATE DECREASED
[2019-10-30] MEDS ORDERED: cefTRIAXone SODIUM 1 GM VIAL ONE (16:53)
[2019-10-30] MEDS ORDERED: FUROSEMIDE 40 MG/4 ML INJECTABLE VIAL ONE (16:53)
[2019-10-30] MEDS ORDERED: CEFTRIAXONE 1 GM/50 ML BAG ONE (16:55)
--- NOTE | 2019-10-30 17:22 | HP ---
<Sasha Rod - Last Filed: 10/31/19 06:49> Hospitalist Medicine Admission 88 y/o F with PMH HTN, afib (on xarelto), chronic thrombocytopenia, CVA 2011, GERD, osteoperosis, actinic keratoses, carotid stenosis (75% occlusion last one) , s/p fall w/ head laceration 2017, who presents for LE edema. States that her sx started 1.5 days ago, without inciting fx. Have been so swollen that she has had trouble ambulating. Usually she uses a cane. Denies orthopnea, and has always slept on "few pillows, never flat." Denies recent salt intake or dietary changes; "I love to eat salad." Only other sx is dysuria, not a/w frequency or suprapubic tenderness. Denies RUIZ, fever, chills, chest pain or pressure or changes in bowel function. Has a cardio she follows with. Never has been told she has CHF. Denies water pills other than being on HCTZ. Has lived at [address] [place] [address] for 6 yrs. In the ED, pt was diuresed with 40mg lasix IVP x 1 and went for a duplex of LE to r/o DVT and duplex LE. Result pending. PMH: as above PsxH: Anny leavitt hip replacement meds: as in chart allergies: NKDA FH: denies SH: never smoked, no alcohol or drug use Allergies No Known Allergies Allergy (Verified 10/30/19 15:47) HOME MEDICATIONS: Home Medications Medication Instructions Recorded Citalopram Hydrobromide [Celexa -] 10 mg PO DAILY 09/05/13 Finasteride [Propecia] 1 mg PO DAILY 09/05/13 Rivaroxaban [Xarelto -] 20 mg PO DAILY 09/05/13 Acetaminophen [Tylenol .Regular 650 mg PO Q6H PRN tablet 08/07/19 Strength -] Cetirizine HCl [Zyrtec -] 10 mg PO HS 10/30/19 Famotidine 20 mg PO DAILY 10/30/19 Ferrous Sulfate 325 mg PO DAILY 10/30/19 Flecainide Acetate [Tambacor -] 50 mg PO BID 10/30/19 Hydrochlorothiazide 25 mg PO DAILY 10/30/19 Losartan Potassium 50 mg PO DAILY 10/30/19 Meloxicam [Mobic] 15 mg PO DAILY 10/30/19 Multivit-Min/FA/Lycopen/Lutein 1 each PO DAILY 10/30/19 [Centrum Silver Tablet] PHYSICAL EXAMINATION Vital Signs - 24 hr 10/30/19 10/30/19 14:52 16:00 Temperature 97.7 F Pulse Rate 87 Pulse Rate [ 85 Radial] Respiratory 18 20 Rate Blood Pressure 153/88 Blood Pressure 172/83 H [Right Arm] O2 Sat by Pulse 100 96 Oximetry (%) GENERAL: AAO x 2 (name, place). pleasant, in NAD HEAD: Normal with no signs of trauma. EYES: Pupils equal, round and reactive to light, extraocular movements intact, sclera anicteric, conjunctiva clear. EARS, NOSE, THROAT: Ears normal, nares patent, oropharynx clear without exudates. Moist mucous membranes. NECK: Normal range of motion, supple LUNGS: mild crackles appreciated at bases. HEART: +irreg irreg. no r/m/g ABDOMEN: Soft, nontender, not distended, normoactive bowel sounds LOWER EXTREMITIES: 1+ pulses, well-perfused. 2+ pitting edema b/l NEUROLOGICAL: Cranial nerves II-XII intact. Normal speech. Normal gait. PSYCHIATRIC: Cooperative. Laboratory Results 10/30/19 10/30/19 10/30/19 15:25 15:25 15:25 WBC 5.8 Hgb 9.9 L Hct 31.1 L D Plt Count 152 D PT with INR 16.90 H INR 1.43 H Sodium 137 Potassium 3.9 Chloride 104 Carbon Dioxide 25 Anion Gap 8 BUN 13.8 Creatinine 0.5 L AST 42 H ALT 95 H Alkaline Phosphatase 144 H Troponin I < 0.02 B-Natriuretic Peptide 9497.5 H Urine Blood Ur Leukocyte Esterase 10/30/19 16:08 Troponin I B-Natriuretic Peptide Urine Blood 1+ H Urine Nitrite Positive H Urine Bilirubin Negative Urine Urobilinogen 1.0 Ur Leukocyte Esterase Trace Urine Bacteria (Auto) 2244.9 EKG: nsr, rate in 80's, w/ TWI in lateral leads, new from previous. qtc 515ms CXR: congestive changes, bibasilar effusions, possible PNA on R ECHO 08/07/19: LVSF normal, LA moderately dilated, mild MR, TR, mild AR Duplex LE, art duplex LE: occlusion of R common fem, superficial fem and posterior tibial a. there is decreased monophasic flow in the R popliteal artery. L leg no definite flow in popliteal or posterior tibial arteries. decreased monophasic flow in lower third superficial femoral a. wih somewhat decreased biphasic flow in upper and middle thirds of the superficial femoral a. unremarkable triphasic flow in common femoral a. ASSESSMENT/PLAN: 88 y/o F with PMH HTN, afib (on xarelto), chronic thrombocytopenia, CVA 2011, GERD, osteoperosis, actinic keratoses, carotid stenosis (75% occlusion last one) , s/p fall w/ head laceration 2017, who presents for LE edema. #LE edema r/o CHF -with crackles, elevated BNP ~9000, LE edema may be 2/2 CHF -c/w lasix 40mg IVP qd , likely lasix naive. follow na control/weights/ strict i /o -ECHO done recently 07/2019, no need to repeat -will also f/u duplex LE, arterial duplex - with decreased flow - will consult vascular -trend trops , first is (-), lipid profile, a1c, tsh -Cardio consult: Dr. Barber #UTI -with +UA, f/u UCx. with dysuria -c/w rocephin (Day 1) #HTN- uncontrolled -c/w losartan -hold HCTZ, in setting of lasix to avoid over-diuresis #afib -c/w flecainide for control -c/w xarelto #GERD -c/w pepcid #KENDRICK -c/w ferrous sulfate #F/E/N no IVF at this time, as w/ hx CHF continue to follow lytes na controlled diet #PPX DVT: on xarelto. #Dispo admit to tele from [facility] Visit type - Emergency Visit Emergency Visit: Yes ED Registration Date: 10/30/19 Care time: The patient presented to the Emergency Department on the above date and was hospitalized for further evaluation of their emergent condition. - New Patient This patient is new to me today: Yes Date on this admission: 10/30/19 - Critical Care Critical Care patient: No <Sunday Noyola - Last Filed: 11/01/19 08:18> Seen and examined; I agree with the above documentation as outlined by the resident aside from as supplemented by myself below. All historical and pierce PE findings along side diagnostics independently verified. Case was discussed at length with the resident team. All questions were answered. Agree with above history; patient is chronically deconditioned and chronic FTT ( 15 BMI) presenting with likely CHF excerbation. She has history of permanent AF and ? PAD with some potential claudication symptoms. Suboptimal historian but not frankly altered at this juncture. ? UTI? noted by ER on empiric rochephin. CV consult is pending-appreciate expert management. 10 sys ROS done and negative aside from HPI. HOME MEDICATIONS: Home Medications Medication Instructions Recorded Citalopram Hydrobromide [Celexa -] 10 mg PO DAILY 09/05/13 Finasteride [Propecia] 1 mg PO DAILY 09/05/13 Rivaroxaban [Xarelto -] 20 mg PO DAILY 09/05/13 Acetaminophen [Tylenol .Regular 650 mg PO Q6H PRN tablet 08/07/19 Strength -] Cetirizine HCl [Zyrtec -] 10 mg PO HS 10/30/19 Famotidine 20 mg PO DAILY 10/30/19 Ferrous Sulfate 325 mg PO DAILY 10/30/19 Flecainide Acetate [Tambacor -] 50 mg PO BID 10/30/19 Hydrochlorothiazide 25 mg PO DAILY 10/30/19 Losartan Potassium 50 mg PO DAILY 10/30/19 Meloxicam [Mobic] 15 mg PO DAILY 10/30/19 Multivit-Min/FA/Lycopen/Lutein 1 each PO DAILY 10/30/19 [Centrum Silver Tablet] REVIEW OF SYSTEMS 10 sys ROS done and negative aside from HPI PHYSICAL EXAMINATION Vital Signs - 24 hr 10/30/19 10/30/19 10/30/19 14:52 16:00 17:43 Temperature 97.7 F Pulse Rate 87 Pulse Rate [ 92 H Left Radial] Pulse Rate [ 85 Radial] Respiratory 18 20 16 Rate Blood Pressure 153/88 Blood Pressure 172/83 H 168/98 [Right Arm] O2 Sat by Pulse 100 96 Oximetry (%) 10/30/19 10/31/19 10/31/19 18:49 07:03 07:17 Temperature 98.3 F Pulse Rate Pulse Rate [ 89 Left Radial] Pulse Rate [ Radial] Respiratory 16 18 Rate Blood Pressure Blood Pressure 151/84 [Right Arm] O2 Sat by Pulse 95 95 96 Oximetry (%) 10/31/19 10:10 Temperature 98.5 F Pulse Rate Pulse Rate [ 77 Left Radial] Pulse Rate [ Radial] Respiratory 18 Rate Blood Pressure Blood Pressure 147/87 [Right Arm] O2 Sat by Pulse 99 Oximetry (%) NAD, AAO, on O2, resting in bed NC AT EOMI PERRLA NT ND +BS CN2-12 wnl, no fnd Normal mood, appropriate behavior Irregular HR, +s1/2 Laboratory Results - last 24 hr 10/30/19 10/30/19 10/30/19 15:25 15:25 15:25 WBC 5.8 RBC 3.76 Hgb 9.9 L Hct 31.1 L D MCV 82.8 MCH 26.3 MCHC 31.7 L RDW 25.3 H Plt Count 152 D MPV 8.9 Absolute Neuts (auto) 4.2 Neutrophils % 72.7 Lymphocytes % 14.5 Monocytes % 12.2 H Eosinophils % 0.4 Basophils % 0.2 Nucleated RBC % 0 Hypochromia 0 Platelet Estimate Decreased Polychromasia 0 Poikilocytosis 0 Anisocytosis 3+ Microcytosis 2+ Macrocytosis 0 Ovalocytes 1+ Schistocytes 1+ PT with INR 16.90 H INR 1.43 H PTT (Actin FS) 35.8 Sodium Potassium Chloride Carbon Dioxide Anion Gap BUN Creatinine Est GFR (CKD-EPI)AfAm Est GFR (CKD-EPI)NonAf Random Glucose Hemoglobin A1c % Calcium Phosphorus Magnesium Total Bilirubin AST ALT Alkaline Phosphatase Creatine Kinase Cancelled Troponin I Cancelled B-Natriuretic Peptide Total Protein Albumin Triglycerides Cholesterol Total LDL Cholesterol HDL Cholesterol TSH Urine Color Urine Appearance Urine pH Ur Specific [place] Urine Protein Urine Glucose (UA) Urine Ketones Urine Blood Urine Nitrite Urine Bilirubin Urine Urobilinogen Ur Leukocyte Esterase Urine WBC (Auto) Urine RBC (Auto) Urine Casts (Auto) U Epithel Cells (Auto) Urine Bacteria (Auto) 10/30/19 10/30/19 10/30/19 15:25 16:08 19:30 WBC RBC Hgb Hct MCV MCH MCHC RDW Plt Count MPV Absolute Neuts (auto) Neutrophils % Lymphocytes % Monocytes % Eosinophils % Basophils % Nucleated RBC % Hypochromia Platelet Estimate Polychromasia Poikilocytosis Anisocytosis Microcytosis Macrocytosis Ovalocytes Schistocytes PT with INR INR PTT (Actin FS) Sodium 137 Potassium 3.9 Chloride 104 Carbon Dioxide 25 Anion Gap 8 BUN 13.8 Creatinine 0.5 L Est GFR (CKD-EPI)AfAm 100.15 Est GFR (CKD-EPI)NonAf 86.41 Random Glucose 82 Hemoglobin A1c % Calcium 9.1 Phosphorus Magnesium 2.7 H Total Bilirubin 0.7 AST 42 H ALT 95 H Alkaline Phosphatase 144 H Creatine Kinase 94 Troponin I < 0.02 B-Natriuretic Peptide 9497.5 H Total Protein 6.6 Albumin 3.2 L Triglycerides Cholesterol Total LDL Cholesterol HDL Cholesterol TSH 1.70 Urine Color Yellow Urine Appearance Clear Urine pH 6.5 Ur Specific [place] 1.015 Urine Protein Negative Urine Glucose (UA) Negative Urine Ketones Negative Urine Blood 1+ H Urine Nitrite Positive H Urine Bilirubin Negative Urine Urobilinogen 1.0 Ur Leukocyte Esterase Trace Urine WBC (Auto) 3 Urine RBC (Auto) 5 Urine Casts (Auto) 3 U Epithel Cells (Auto) 1.4 Urine Bacteria (Auto) 2244.9 10/30/19 10/30/19 10/30/19 19:30 19:30 19:30 WBC RBC Hgb Hct MCV MCH MCHC RDW Plt Count MPV Absolute Neuts (auto) Neutrophils % Lymphocytes % Monocytes % Eosinophils % Basophils % Nucleated RBC % Hypochromia Platelet Estimate Polychromasia Poikilocytosis Anisocytosis Microcytosis Macrocytosis Ovalocytes Schistocytes PT with INR INR PTT (Actin FS) Sodium Potassium Chloride Carbon Dioxide Anion Gap BUN Creatinine Est GFR (CKD-EPI)AfAm Est GFR (CKD-EPI)NonAf Random Glucose Hemoglobin A1c % 4.7 Calcium Phosphorus Magnesium Total Bilirubin AST ALT Alkaline Phosphatase Creatine Kinase 73 Troponin I < 0.02 B-Natriuretic Peptide Total Protein Albumin Triglycerides 47 Cholesterol 88 Total LDL Cholesterol 37 HDL Cholesterol 43 TSH Urine Color Urine Appearance Urine pH Ur Specific [place] Urine Protein Urine Glucose (UA) Urine Ketones Urine Blood Urine Nitrite Urine Bilirubin Urine Urobilinogen Ur Leukocyte Esterase Urine WBC (Auto) Urine RBC (Auto) Urine Casts (Auto) U Epithel Cells (Auto) Urine Bacteria (Auto) 10/31/19 10/31/19 06:07 06:07 WBC 4.8 RBC 3.29 L Hgb 8.7 L Hct 26.6 L MCV 81.0 MCH 26.5 MCHC 32.8 RDW 24.1 H Plt Count 138 MPV 8.4 Absolute Neuts (auto) 3.5 Neutrophils % 71.6 Lymphocytes % 14.5 Monocytes % 13.2 H Eosinophils % 0.5 Basophils % 0.2 Nucleated RBC % 0 Hypochromia Platelet Estimate Polychromasia Poikilocytosis Anisocytosis Microcytosis Macrocytosis Ovalocytes Schistocytes PT with INR INR PTT (Actin FS) Sodium 141 Potassium 3.1 L Chloride 106 Carbon Dioxide 26 Anion Gap 8 BUN 13.8 Creatinine 0.6 Est GFR (CKD-EPI)AfAm 94.32 Est GFR (CKD-EPI)NonAf 81.38 Random Glucose 108 H Hemoglobin A1c % Calcium 8.2 L Phosphorus 3.1 Magnesium 2.0 Total Bilirubin AST ALT Alkaline Phosphatase Creatine Kinase Troponin I B-Natriuretic Peptide Total Protein Albumin Triglycerides Cholesterol Total LDL Cholesterol HDL Cholesterol TSH Urine Color Urine Appearance Urine pH Ur Specific [place] Urine Protein Urine Glucose (UA) Urine Ketones Urine Blood Urine Nitrite Urine Bilirubin Urine Urobilinogen Ur Leukocyte Esterase Urine WBC (Auto) Urine RBC (Auto) Urine Casts (Auto) U Epithel Cells (Auto) Urine Bacteria (Auto) Echo pending EKG reviewed CXR reviewed ER Tele noted ASSESSMENT/PLAN: Presents with CHF exacerbation pending CV consultation and chronic poor functional status. discussing goals of care with family and will diurese and monitor on the medical floor. Problems include: -HFpEF exacerbation (Pre and post, FU CV recs, tele, Mg and K optimization and fluid and salt controlled diet with strict Is and Os and QD weights. FU with CV ). -Hx HTN (Monitor) -Prolonged QTc (Mg is OK, K is low. Repleted and continue with tele. 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 Planning to discuss the goals of care with the patient's family. -Hx CVA -Hx Actinic Keratosis -Hx Carotid A. Stenosis -Mechanical falls at home -Hx GERD Full Code ATTENDING PHYSICIAN STATEMENT I saw and evaluated the patient. I reviewed the resident's note and discussed the case with the resident. I agree with the resident's findings and plan as documented. SUBJECTIVE: OBJECTIVE: ASSESSMENT AND PLAN:
[2019-10-30] MEDS ORDERED: LOSARTAN POTASSIUM 50 MG TABLET (FP) ONE (17:46)
[2019-10-30] MEDS: LOSARTAN POTASSIUM 50 MG TABLET (FP) PO SCH (17:57)
[2019-10-30 20:37] LABS: CHOLESTEROL 88 mg/dL (50-200); HDL CHOLESTEROL 43 mg/dL (40-60); LDL CHOLESTEROL (ONLY SJRH) 37 mg/dL (5-100); TRIGLYCERIDES 47 mg/dL (0-150)
[2019-10-31] MEDS: FLECAINIDE ACETATE 50 MG TABLET PO SCH ×4 (04:44→23:09)
[2019-10-31 06:23] LABS: BASO % 0.2 % (0-2.0); EOS % 0.5 % (0-4.5); HEMATOCRIT 26.6 % (32.4-45.2); HEMOGLOBIN 8.7 GM/dL (10.7-15.3); LYMPH % 14.5 % (8-40); MCH 26.5 pg (25.7-33.7); MCHC 32.8 g/dl (32.0-36.0); MEAN PLT VOLUME 8.4 fl (7.5-11.1); MONO % 13.2 % (3.8-10.2); NEUT % 71.6 % (42.8-82.8); PLATELET COUNT 138 K/MM3 (134-434); RBC 3.29 M/mm3 (3.60-5.2); RDW 24.1 % (11.6-15.6); WHITE BLOOD COUNT 4.8 K/mm3 (4.0-10.0)
[2019-10-31 06:52] LABS: BLOOD UREA NITROGEN 13.8 mg/dL (7-18); CALCIUM 8.2 mg/dL (8.5-10.1); CREATININE 0.6 mg/dL (0.55-1.3); PHOSPHOROUS 3.1 mg/dL (2.5-4.9); POTASSIUM 3.1 mmol/L (3.5-5.1)
[2019-10-31] MEDS ORDERED: ONDANSETRON 8 MG TABLET (FP) PO ONE (07:25)
--- NOTE | 2019-10-31 09:43 | CON.CARD ---
Consult Consult Specialty:: Cardiology Referred by:: Dr. Noyola Reason for Consultation:: CHF - History of Present Illness Chief Complaint: Fatigue and leg edema History of Present Illness: 88 y/o F with PMH HTN, afib (on xarelto), chronic thrombocytopenia, CVA 2011, GERD, osteoperosis, actinic keratoses, carotid stenosis (75% occlusion last one) , s/p fall w/ head laceration 2018, who presents for LE edema. States that her sx started 1.5 days ago, without inciting fx. Have been so swollen that she has had trouble ambulating. Usually she uses a cane. Denies orthopnea, and has always slept on "few pillows, never flat." Denies recent salt intake or dietary changes; "I love to eat salad." Only other sx is dysuria, not a/w frequency or suprapubic tenderness. Denies RUIZ, fever, chills, chest pain or pressure or changes in bowel function. Has a cardio she follows with. Never has been told she has CHF. Denies water pills other than being on HCTZ. Has lived at [address] [place] [address] for 6 yrs. In the ED, pt was diuresed with 40mg lasix IVP x 1 and went for a duplex of LE . PMH: as above PsxH: lap dede, L hip replacement meds: as in chart allergies: NKDA FH: denies SH: never smoked, no alcohol or drug use - History Source History Provided By: Patient - Past Medical History Cardio/Vascular: Yes: AFIB, CHF Pulmonary: No: Asthma, Bronchitis, Cancer, COPD, O2 Dependent, Pneumonia, Previously Intubated, Pulmonary Embolus, Pulmonary Fibrosis, Sleep Apnea, Other Gastrointestinal: No: Ascites, Cancer, Constipation, Crohn's Disease, Diverticulitis, Diverticulosis, Esophageal Varices, Gastritis, GERD, GI Bleed, Hemorrhoids, Hiatal Hernia, Inflamatory Bowel Disease, Irritable Bowel Disease, Pancreatitis, Peptic Ulcer Disease, Ulcerative Colitis, Other Hepatobiliary: No: Cirrhosis, Cholelithiasis, Cholecystitis, Choledocholithiasis , Hepatitis A, Hepatitis B, Hepatitis C, Other Renal/: No: Renal Failure, Renal Inusuff, BPH, Cancer, Hematuria, Hemodialysis , Neurogenic Bladder, Renal Calculi, UTI, Other Reproductive: No: Ectopic , Endometriosis, Fibroids, PID, Polycystic Ovary Syndrome, Postmenopausal, Other Psych: No: Addictions, Anxiety, Bipolar, Depression, Panic, Psychosis, Schizophrenia, Other Musculoskeletal: No: Bursitis, Chronic low back pain, Hemiparesis, Hemiplegia, Osteoarthritis, Paraplegia, Other Rheumatology: No: Fibromyalgia, Gout, Lupus, Rheumatoid Arthritis, Sarcoidosis, Vasculitis, Other ENT: No: Allergic Rhinitis, Sinusitis, Other - Alcohol/Substance Use Hx Alcohol Use: No - Smoking History Smoking history: Never smoked Have you smoked in the past 12 months: No Aproximately how many cigarettes per day: 0 - Social History Usual Living Arrangement: [facility] ADL: Support Services History of Recent Travel: No Home Medications - Allergies Allergies/Adverse Reactions: Allergies Allergy/AdvReac Type Severity Reaction Status Date / Time No Known Allergies Allergy Verified 10/30/19 15:47 - Home Medications Home Medications: Ambulatory Orders Citalopram Hydrobromide [Celexa -] 10 mg PO DAILY 09/05/13 Finasteride [Propecia] 1 mg PO DAILY 09/05/13 Rivaroxaban [Xarelto -] 20 mg PO DAILY 09/05/13 Acetaminophen [Tylenol .Regular Strength -] 650 mg PO Q6H PRN tablet 08/07/19 Cetirizine HCl [Zyrtec -] 10 mg PO HS 10/30/19 Famotidine 20 mg PO DAILY 10/30/19 Ferrous Sulfate 325 mg PO DAILY 10/30/19 Flecainide Acetate [Tambacor -] 50 mg PO BID 10/30/19 Hydrochlorothiazide 25 mg PO DAILY 10/30/19 Losartan Potassium 50 mg PO DAILY 10/30/19 Meloxicam [Mobic] 15 mg PO DAILY 10/30/19 Multivit-Min/FA/Lycopen/Lutein [Centrum Silver Tablet] 1 each PO DAILY 10/30/19 Family Medical History Family History: Unremarkable Review of Systems - Review of Systems Constitutional: reports: Weakness HENT: denies: No Symptoms, Difficult Swallowing, Ear Discharge, Ear Pain, Epistaxis, Gingival Bleeding, Hearing Loss, Mouth Swelling, Nasal Congestion, Ocular Prosthesis, Throat Pain, Toothache, Ringing in Ears, Other Cardiovascular: reports: Edema Gastrointestinal: denies: No Symptoms, Abdominal Pain, Bloating, Constipation, Diarrhea, Dysphagia, Indigestion, Melena, Nausea, Rectal Bleeding, Vomiting, Vomiting Blood, Other Genitourinary: denies: No Symptoms, Burning, Discharge, Dysuria, Flank Pain, Frequency, Hematuria, Incontinence, Lesions, Menses, Pain, Testicular Mass, Testicular Pain, Testicular Swelling, Urgency, Vaginal Bleeding, Other Breasts: denies: No Symptoms Reported, See HPI, Breast Implants, Discharge from Nipple, Lumps, Pain, Skin Changes, Other Musculoskeletal: denies: No Symptoms, Back Pain, Crepitus, Decreased ROM, Extremity Pain, Joint Pain, Joint Swelling, Muscle Pain, Muscle Cramps, Muscle Weakness, Other Integumentary: denies: No Symptoms, Blister, Bruising, Change in Color, Eczema, Erythema, Incision, Lesions, Lump, Pallor, Pruritis, Rash, Wound, Other Endocrine: denies: No Symptoms, Excessive Sweating, Flushing, Increased Hunger, Increased Thirst, Intolerance to Cold, Intolerance to Heat, Unexplained Weight Gain, Unexplained Weight Loss, Other Hematology/Lymphatic: denies: No Symptoms, Easily Bruised, Excessive Bleeding, Swollen Glands, Other Psychiatric: denies: No Symptoms, Altered Sleep Pattern, Anxiety, Depression, Hallucinations, Panic, Paranoia, Suicidal, Other - Risk Factors Known Risk Factors: Yes: Hypertension Vital Signs: Vital Signs Temperature 98.3 F 10/31/19 07:17 Pulse Rate 89 10/31/19 07:17 Respiratory Rate 18 10/31/19 07:17 Blood Pressure 151/84 10/31/19 07:17 O2 Sat by Pulse Oximetry (%) 96 10/31/19 07:17 Constitutional: Yes: No Distress, Calm Eyes: Yes: Conjunctiva Clear HENT: Yes: Atraumatic Respiratory: Yes: Other (bibasilar rales 1/3) Gastrointestinal: Yes: Soft JVD: No Carotid Bruit: No Heart Sounds: Yes: S1, S2 (irreg) Edema: Yes Edema: LLE: 2+, RLE: 2+ Neurological: Yes: Alert, Oriented - Other Data Labs, Other Data: CBC, BMP 10/31/19 06:07 10/31/19 06:07 INR, PTT INR 1.43 (0.83-1.09) H 10/30/19 15:25 Troponin, BNP 10/30/19 10/30/19 10/30/19 15:25 15:25 19:30 Troponin I Cancelled < 0.02 < 0.02 B-Natriuretic Peptide 9497.5 H Troponin, BNP 10/30/19 10/30/19 10/30/19 15:25 15:25 19:30 Troponin I Cancelled < 0.02 < 0.02 B-Natriuretic Peptide 9497.5 H Laboratory Tests 10/30/19 10/30/19 10/30/19 15:25 19:30 19:30 WBC Hgb Plt Count Sodium Potassium Creatinine Troponin I < 0.02 < 0.02 TSH 1.70 10/31/19 10/31/19 06:07 06:07 WBC 4.8 Hgb 8.7 L Plt Count 138 Sodium 141 Potassium 3.1 L Creatinine 0.6 Troponin I TSH EKG: nsr, rate in 80's, w/ TWI in lateral leads, new from previous. qtc 515ms Echo: Pending Imaging - Results Chest X-ray: Image Reviewed (CHF) EKG: Image Reviewed Assessment/Plan IMP: Permanent AF Acute on chronic CHF (systolic v Diastolic) Abnl ECG, NSST changes, prolonged QT PAD REC: 1. Tele 2. Repeat Echo 3. IV lasix, daily weights and BMP 3. Cont Xarelto- adjust for weight, renal fx 4. Currently not requiring rate control agents. Observe on tele 5. Replete K, follow Qtc 5. Vascular consulted for b/l PAD.
[2019-10-31] MEDS ORDERED: FINASTERIDE 1 MG PO SCH (10:00)
[2019-10-31] MEDS ORDERED: CEFTRIAXONE 1 GM/50 ML BAG ONE (10:01)
[2019-10-31] MEDS ORDERED: FUROSEMIDE 40 MG/4 ML INJECTABLE VIAL ONE (10:01)
[2019-10-31] MEDS ORDERED: POTASSIUM CHLORIDE TABS 20 MEQ TABLET.ER (FP) PO ONE (10:01)
[2019-10-31] MEDS ORDERED: LOSARTAN POTASSIUM 50 MG TABLET (FP) ONE (10:01)
[2019-10-31] MEDS ORDERED: FERROUS SO4 325 MG TABLET (FP) ONE (10:01)
[2019-10-31] MEDS: CEFTRIAXONE 1 GM in DEXTROSE 5%-WATER - 50 ML IVPB SCH (10:09)
[2019-10-31] MEDS: FERROUS SO4 325 MG TABLET (FP) PO SCH (10:09)
[2019-10-31] MEDS: FAMOTIDINE 20 MG TABLET PO SCH (10:09)
[2019-10-31] MEDS: FUROSEMIDE 40 MG/4 ML INJECTABLE VIAL IVPUSH SCH (10:09)
[2019-10-31] MEDS: LOSARTAN POTASSIUM 50 MG TABLET (FP) PO SCH (10:09)
[2019-10-31] MEDS: POTASSIUM CHLORIDE TABS 20 MEQ TABLET.ER (FP) PO SCH (10:09)
[2019-10-31] MEDS: MULTIVITAMINS THER W-MINERALS COMBO TABLET (FP) PO SCH (10:10)
--- NOTE | 2019-10-31 11:55 | PN ---
Progress Note (short form) - Note Progress Note: Hospitalist Medicine in good spirits this AM, getting ECHO done Vitals 10/31/19 10:10 Temperature 98.5 F Pulse Rate [ 77 Left Radial] Respiratory 18 Rate Blood Pressure 147/87 [Right Arm] O2 Sat by Pulse 99 Oximetry (%) Physical Exam general: resting comfortably in bed, in NAD heent: NCAT neck: supple cardio: irreg irreg. no r/m/g pulm: b/l rales. no accessory m usage abdomen: soft, NTND LE: 2+ edema. 1+ pulses Laboratory Tests 10/31/19 10/31/19 06:07 06:07 WBC 4.8 Hgb 8.7 L Hct 26.6 L Plt Count 138 Sodium 141 Potassium 3.1 L Chloride 106 Carbon Dioxide 26 BUN 13.8 Creatinine 0.6 Random Glucose 108 H Calcium 8.2 L 10/30/19: Ucx - pending Imaging 10/31/19: ECHO: mild apical septal hypokinesis, LVSF normal, ef 50-55%, LA mod dilated EKG: nsr, rate in 80's, w/ TWI in lateral leads, new from previous. qtc 515ms CXR: congestive changes, bibasilar effusions, possible PNA on R Duplex LE, art duplex LE: occlusion of R common fem, superficial fem and posterior tibial a. there is decreased monophasic flow in the R popliteal artery. L leg no definite flow in popliteal or posterior tibial arteries. decreased monophasic flow in lower third superficial femoral a. wih somewhat decreased biphasic flow in upper and middle thirds of the superficial femoral a. unremarkable triphasic flow in common femoral a. Assessment/Plan 88 y/o F with PMH HTN, afib (on xarelto), chronic thrombocytopenia, CVA 2011, GERD, osteoperosis, actinic keratoses, carotid stenosis (75% occlusion last one) , s/p fall w/ head laceration 2017, who presents for LE edema. #LE edema r/o CHF -with crackles, elevated BNP ~9000, LE edema may be 2/2 CHF -c/w lasix 40mg IVP qd , likely lasix naive. follow na control/weights/ strict i /o -repeat ECHO result noted -trop (-) x 2 -Cardio consult: Dr. Barber #UTI -with +UA, f/u UCx. with dysuria -c/w rocephin (Day 2) #duplex LE, arterial duplex - with decreased flow - vascular consulted - vascular: Dr. Ortega #HTN- uncontrolled -c/w losartan -hold HCTZ, in setting of lasix to avoid over-diuresis #afib -c/w flecainide for control -c/w xarelto #GERD -c/w pepcid #KENDRICK -c/w ferrous sulfate #F/E/N no IVF at this time, as w/ hx CHF continue to follow lytes na controlled diet #PPX DVT: on xarelto. #Dispo cont'd monitoring on tele from [facility] <Sasha Rod - Last Filed: 10/31/19 16:43> - Note Progress Note: Seen and examined; I agree with the above documentation as outlined by the resident aside from as supplemented by myself below. All historical and pierce PE findings along side diagnostics independently verified. Case was discussed at length with the resident team. All questions were answered. No other events reported. Echo with mild to moderate valvular disease with EF > 50% with mild septal hypokinesis. No further issues reported by the patient. Seen by CV; continue telemetry and diuresis. Appreciate expert consultation. 10 sys ROS done and negative aside from HPI NAD, AAO, on O2, resting in bed NC AT EOMI PERRLA NT ND +BS CN2-12 wnl, no fnd Normal mood, appropriate behavior Irregular HR, +s1/2 A/P: Presents with CHF exacerbation Problems include: -HFpEF exacerbation (Pre and post, FU CV recs, tele, Mg and K optimization and fluid and salt controlled diet with strict Is and Os and QD weights). -Hx HTN (Monitor) -Prolonged QTc (Mg is OK, K is low. Repleted and continue with tele. 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 Planning to discuss the goals of care with the patient's family. -Hx CVA -Hx Actinic Keratosis -Hx Carotid A. Stenosis -Mechanical falls at home -Hx GERD Full Code <Sunday Noyola - Last Filed: 11/01/19 08:17>
--- NOTE | 2019-10-31 12:26 | ECHO ---
Name: MONROE HUGGINS Exam:Adult Echocardiogram Study Date: 10/31/2019 08:21 AM Age: 88 yrs Height: 63 in Weight: 88 lb BSA: 1.4 m2 MMode/2D Measurements & Calculations IVSd: 0.68 cm Ao root diam: 2.9 cm LVIDd: 4.3 cm LA dimension: 4.7 cm LVIDs: 3.0 cm ACS: 1.2 cm LVPWd: 0.81 cm IVSs: 1.0 cm LVPWs: 1.0 cm EDV(Teich): 81.3 ml ESV(Teich): 35.0 ml LVOT diam: 1.9 cm Doppler Measurements & Calculations MV E max eduardo: 81.0 cm/sec Ao V2 max: 169.6 cm/sec MV A max eduardo: 73.9 cm/sec Ao max P.5 mmHg MV E/A: 1.1 Ao V2 mean: 119.1 cm/sec Ao mean P.5 mmHg Ao V2 VTI: 34.4 cm ROCKY(I,D): 1.2 cm2 AI P1/2t: 329.1 msec ROCKY(V,D): 1.2 cm2 AI max eduardo: 449.6 cm/sec LV V1 max P.4 mmHg AI max P.9 mmHg LV V1 mean P.5 mmHg AI dec slope: 400.1 cm/sec2 LV V1 max: 78.1 cm/sec LV V1 mean: 57.5 cm/sec LV V1 VTI: 15.3 cm MR max eduardo: 527.4 cm/sec SV(LVOT): 41.3 ml MR max P.0 mmHg TR max eduardo: 252.7 cm/sec PI end-d eduardo: 67.9 cm/sec TR max P.7 mmHg Med Peak E' Eduardo: 2.6 cm/sec Med E/e': 30.8 Lat Peak E' Eduardo: 7.4 cm/sec Lat E/e': 10.9 Left Ventricle Mild basal septal hypertrophy. Left ventricular systolic function is normal. Ejection Fraction = 50-5 5%. The transmitral spectral Doppler flow pattern is suggestive of pseudonormalization. Mild apical septal hypokinesis. Right Ventricle The right ventricle is normal in size and function. Atria The left atrium is moderately dilated. Right atrial size is normal. Mitral Valve There is mild mitral annular calcification. There is no mitral valve stenosis. There is mild mitral regurgitation. Tricuspid Valve The tricuspid valve is normal in structure and function. There is mild tricuspid regurgitation. Right ventricular systolic pressure is normal. Aortic Valve There is mild to moderate aortic sclerosis.;. No hemodynamically significant valvular aortic stenosis . Mild to moderate aortic regurgitation. Pulmonic Valve The pulmonic valve is not well seen, but is grossly normal. There is no pulmonic valvular stenosis. M ild pulmonic valvular regurgitation. Great Vessels The aortic root is normal size. Pericardium/Pleura There is no pericardial effusion. Interpretation Summary Mild apical septal hypokinesis. Mild basal septal hypertrophy. Left ventricular systolic function is normal. Ejection Fraction = 50-55%. The left atrium is moderately dilated. There is mild mitral annular calcification. There is mild mitral regurgitation. There is mild tricuspid regurgitation. There is mild to moderate aortic sclerosis.; Mild to moderate aortic regurgitation. There is no pericardial effusion. MD Gross *Elvia 10/31/2019 12:26 PM
--- NOTE | 2019-10-31 13:19 | EKG ---
Test Reason : Blood Pressure : / mmHG Vent. Rate : 081 BPM Atrial Rate : 081 BPM P-R Int : 142 ms QRS Dur : 072 ms QT Int : 444 ms P-R-T Axes : 033 254 269 degrees QTc Int : 515 ms NORMAL SINUS RHYTHM RIGHT SUPERIOR AXIS DEVIATION ANTEROSEPTAL INFARCT (CITED ON OR BEFORE 05-SEP-2013) PROLONGED QT ABNORMAL ECG Confirmed by KEITH HURST MD ([id number]) on 10/31/2019 1:19:02 PM Referred By: Confirmed By:KEITH HURST MD
[2019-10-31] MEDS: RIVAROXABAN 20 MG TABLET PO SCH (18:04)
[2019-10-31] MEDS ORDERED: PT OWN MED DRAWER 7, Y5N ONE (22:38)
[2019-11-01] MEDS: LOSARTAN POTASSIUM 50 MG TABLET (FP) PO SCH ×2 (06:51→09:39)
[2019-11-01 07:31] LABS: BLOOD UREA NITROGEN 10.6 mg/dL (7-18); CALCIUM 8.3 mg/dL (8.5-10.1); CREATININE 0.4 mg/dL (0.55-1.3); PHOSPHOROUS 3.2 mg/dL (2.5-4.9); POTASSIUM 3.3 mmol/L (3.5-5.1)
[2019-11-01] MEDS ORDERED: cefTRIAXone SODIUM 1 GM VIAL ONE (09:21)
[2019-11-01] MEDS ORDERED: DEXTROSE 5%-WATER - 50 ML IVPB ONE (09:22)
[2019-11-01] MEDS: FERROUS SO4 325 MG TABLET (FP) PO SCH (09:44)
[2019-11-01] MEDS: POTASSIUM CHLORIDE TABS 20 MEQ TABLET.ER (FP) PO SCH (09:44)
[2019-11-01] MEDS: FAMOTIDINE 20 MG TABLET PO SCH (09:45)
[2019-11-01] MEDS: CEFTRIAXONE 1 GM in DEXTROSE 5%-WATER - 50 ML IVPB SCH (09:45)
[2019-11-01] MEDS: FUROSEMIDE 40 MG/4 ML INJECTABLE VIAL IVPUSH SCH (09:46)
[2019-11-01] MEDS: MULTIVITAMINS THER W-MINERALS COMBO TABLET (FP) PO SCH (09:46)
--- NOTE | 2019-11-01 09:52 | PN ---
Progress Note (short form) - Note Progress Note: s: no cp palps dizzy; mild sob and le edema improving Current Medications Generic Name Dose Route Start Last Admin Trade Name Martha PRN Reason Stop Dose Admin Famotidine 20 mg 10/31/19 10:00 11/01/19 09:45 Pepcid - PO 20 mg DAILY [facility] Administration Ferrous Sulfate 325 mg 10/31/19 10:00 11/01/19 09:44 Feosol - PO 325 mg DAILY [facility] Administration Flecainide Acetate 50 mg 10/30/19 22:00 10/31/19 23:09 Tambacor - PO Not Given BID [facility] Furosemide 40 mg 10/31/19 10:00 11/01/19 09:46 Lasix Injection - IVPUSH 40 mg DAILY [facility] Administration Ceftriaxone Sodium 1 gm/ 50 mls @ 100 mls/hr 10/31/19 10:00 11/01/19 09:45 Dextrose IVPB 100 mls/hr DAILY FRANCES Administration Losartan Potassium 50 mg 10/30/19 17:30 11/01/19 09:39 Cozaar - PO Not Given DAILY FRANC[facility] Multivitamins/Minerals 1 each 10/31/19 10:00 11/01/19 09:46 Theragran-M PO 1 each DAILY [facility] Administration Non-Formulary Medication 1 mg 10/31/19 10:00 Finasteride [Propecia] PO DAILY [facility] Potassium Chloride 40 meq 10/31/19 10:00 11/01/19 09:44 K-Dur - PO 40 meq DAILY [facility] Administration Rivaroxaban 20 mg 10/31/19 18:00 10/31/19 18:04 Xarelto PO 20 mg DAILY@1800 [facility] Administration Vital Signs Period Temp Pulse Resp BP Sys/Armstrong Pulse Ox Last 24 Hr 97.9 F-98.8 F 77-111 16-95 120-170/60-89 95-99 Constitutional: Yes: No Distress, Calm Eyes: Yes: Conjunctiva Clear HENT: Yes: Atraumatic Respiratory: Yes: Other (bibasilar rales 1/3) Gastrointestinal: Yes: Soft JVD: No Carotid Bruit: No Heart Sounds: Yes: S1, S2 (irreg) Edema: 1+ le edema bl Neurological: Yes: Alert, Oriented - Other Data Labs, Other Data: CBC, BMP 10/31/19 06:07 11/01/19 06:05 EKG: nsr, rate in 80's, w/ TWI in lateral leads, new from previous. qtc 515ms tele: afib, occ rvr Imaging - Results Chest X-ray: Image Reviewed (CHF) EKG: Image Reviewed Assessment/Plan IMP: Permanent AF Acute on chronic CHF (systolic v Diastolic) Abnl ECG, NSST changes, prolonged QT PAD REC: 1. Tele 2. echo here with nl lvef 3. cont IV lasix, daily weights and BMP, vol improving 3. Cont Xarelto 4. mild rvr on tele, will start bb, cont tele 5. Replete K prn 5. Vascular consulted for b/l PAD.
[2019-11-01] MEDS: metoPROLOL SUCCINATE 25 MG TAB.SR.24H (FP) PO SCH (12:00)
[2019-11-01] MEDS: FLECAINIDE ACETATE 50 MG TABLET PO SCH ×2 (12:01→21:41)
--- NOTE | 2019-11-01 14:02 | PN ---
Progress Note, Physician History of Present Illness: Patient seen and examined at bedside. States she feels well. She states her leg edema has improved. arterial US of lower extremities significant for bilateral PAD and vascular consult pending. She states she has some very mild dysuria and prior to lasix at home she denies increased frequency. Upon further questioning she states she walks with a walker and has been recently experiencing what she describes as claudication (Pain in her calves when walking). She denies nausea vomiting fever chills chest pain or SOB. She went from laughing and smiling to all of a sudden crying and she states she is overwhelmed with everything going on. I stayed with her at bedside for 10 minutes and gave her reassurance and emotional support. Justified her feelings and all her questions were answered and concerns addressed. Patient felt better afterwards. Endorses hip pain 3 months ago after helping her with something but no longer in pain. Ucx growing lactose fermenting gram negative bacilli ID and sensitivities pending. - Current Medication List Current Medications: Active Medications Famotidine (Pepcid -) 20 mg PO DAILY [facility] Last Admin: 11/01/19 09:45 Dose: 20 mg Ferrous Sulfate (Feosol -) 325 mg PO DAILY [facility] Last Admin: 11/01/19 09:44 Dose: 325 mg Flecainide Acetate (Tambacor -) 50 mg PO BID [facility] Last Admin: 11/01/19 12:01 Dose: 50 mg Furosemide (Lasix Injection -) 40 mg IVPUSH DAILY [facility] Last Admin: 11/01/19 09:46 Dose: 40 mg Ceftriaxone Sodium 1 gm/ (Dextrose) 50 mls @ 100 mls/hr IVPB DAILY [facility] Last Admin: 11/01/19 09:45 Dose: 100 mls/hr Losartan Potassium (Cozaar -) 50 mg PO DAILY [facility] Last Admin: 11/01/19 09:39 Dose: Not Given Metoprolol Succinate (Toprol Xl -) 25 mg PO DAILY [facility] Last Admin: 11/01/19 12:00 Dose: 25 mg Multivitamins/Minerals (Theragran-M) 1 each PO DAILY [facility] Last Admin: 11/01/19 09:46 Dose: 1 each Non-Formulary Medication (Finasteride [Propecia]) 1 mg PO DAILY [facility] Potassium Chloride (K-Dur -) 40 meq PO DAILY [facility] Last Admin: 11/01/19 09:44 Dose: 40 meq Potassium Chloride (K-Dur -) 40 meq PO ONCE ONE Stop: 11/01/19 22:01 Rivaroxaban (Xarelto) 20 mg PO DAILY@1800 [facility] Last Admin: 10/31/19 18:04 Dose: 20 mg - Objective Vital Signs: Vital Signs Temperature 98.3 F 11/01/19 09:41 Pulse Rate 95 H 11/01/19 09:41 Respiratory Rate 18 11/01/19 09:41 Blood Pressure 120/60 11/01/19 09:41 O2 Sat by Pulse Oximetry (%) 95 11/01/19 08:59 Constitutional: Yes: Thin Eyes: Yes: EOM Intact, Other (pallor of conjunctiva) Neck: Yes: Supple Cardiovascular: Yes: Regular Rate and Rhythm, Murmur (systolic 3/6 RUSB) Respiratory: Yes: Diminished, Poor Air Entry, Other (very slight crackles at bases. left side is louder than right side) Gastrointestinal: Yes: Soft, Other (very mild suprapubic discomfort with palpation) Genitourinary: No: CVA Tenderness - Left, CVA Tenderness - Right Extremities: Yes: Other (evidence of stasis dermatitis of lower extremities L>R) Edema: Yes Edema: LLE: 1+, RLE: Trace Peripheral Pulses: Left Doralis Pedis: 0, Right Dorsalis Pedis: 0 Neurological: Yes: Alert. No: Oriented (Patient thinks it is 1920 and november. [facility] thinks [facility] is at [facility] and keeps asking to go to her own bed and she thinks her roomate is in her bed.) ...Motor Strength: LLE (able to lift both legs up at the hip joint without pain) , RLE Labs: CBC, BMP 10/31/19 06:07 11/01/19 06:05 INR, PTT INR 1.43 (0.83-1.09) H 10/30/19 15:25 Impression/Plan Impression/Plan: 88 y/o F with PMH HTN, afib (on xarelto), chronic thrombocytopenia, CVA 2011, GERD, osteoperosis, actinic keratoses, carotid stenosis (75% occlusion last one) , presents with lower extremity edema. Lower extremity edema acute on chronic CHF exacerbation Echo noted to have normal LVEF improving with lasix continue lasix replete hypokalemia and recheck-give extra dose of potassium cardiology consult noted and appreciated UTI-symptomatic positive UA and UCx with lactose fermenting GNB duplex LE, arterial duplex - with decreased flow bilaterally vascular: Dr. Ortega-pending HTN controlled continue losartan and metoprolol permanent afib flecainide for control metoprolol added by cards continue xarelto GERD pepcid KENDRICK c/w ferrous sulfate trend CBC FEN: no IVF Potassium is low and patient on 40meq of K daily so will give extra dose of 40meq tonight for hypokalemia sodium controlled diet PPX DVT: on xarelto. GI: On pepcid PT consult Visit type - Emergency Visit Emergency Visit: Yes ED Registration Date: 10/30/19 Care time: The patient presented to the Emergency Department on the above date and was hospitalized for further evaluation of their emergent condition. - New Patient This patient is new to me today: Yes Date on this admission: 11/01/19 - Critical Care Critical Care patient: No
[2019-11-01] MEDS: RIVAROXABAN 20 MG TABLET PO SCH (17:31)
[2019-11-01] MEDS ORDERED: PT OWN MED DRAWER 7, Y5N ONE ×2 (18:44→21:37)
[2019-11-01] MEDS ORDERED: POTASSIUM CHLORIDE TABS 20 MEQ TABLET.ER (FP) PO ONE (22:00)
[2019-11-02 06:43] LABS: HEMATOCRIT 28.3 % (32.4-45.2); HEMOGLOBIN 9.1 GM/dL (10.7-15.3); MCH 26.4 pg (25.7-33.7); MCHC 32.3 g/dl (32.0-36.0); MEAN CELL VOLUME 81.7 fl (80-96); MEAN PLT VOLUME 8.4 fl (7.5-11.1); PLATELET COUNT 166 K/MM3 (134-434); RBC 3.46 M/mm3 (3.60-5.2); RDW 28.5 % (11.6-15.6); WHITE BLOOD COUNT 5.3 K/mm3 (4.0-10.0)
[2019-11-02 07:40] LABS: BLOOD UREA NITROGEN 12.3 mg/dL (7-18); CALCIUM 8.6 mg/dL (8.5-10.1); CREATININE 0.4 mg/dL (0.55-1.3); MAGNESIUM 2.2 mg/dL (1.8-2.4); POTASSIUM 4.2 mmol/L (3.5-5.1)
[2019-11-02] MEDS ORDERED: cefTRIAXone SODIUM 1 GM VIAL ONE (09:30)
[2019-11-02] MEDS ORDERED: PT OWN MED DRAWER 7, Y5N ONE ×2 (09:30→21:58)
[2019-11-02] MEDS ORDERED: DEXTROSE 5%-WATER - 50 ML IVPB ONE (09:31)
[2019-11-02] MEDS: CEFTRIAXONE 1 GM in DEXTROSE 5%-WATER - 50 ML IVPB SCH (09:32)
[2019-11-02] MEDS: POTASSIUM CHLORIDE TABS 20 MEQ TABLET.ER (FP) PO SCH (09:33)
[2019-11-02] MEDS: FERROUS SO4 325 MG TABLET (FP) PO SCH (09:34)
[2019-11-02] MEDS: metoPROLOL SUCCINATE 25 MG TAB.SR.24H (FP) PO SCH (09:34)
[2019-11-02] MEDS: LOSARTAN POTASSIUM 50 MG TABLET (FP) PO SCH (09:34)
[2019-11-02] MEDS: MULTIVITAMINS THER W-MINERALS COMBO TABLET (FP) PO SCH (09:34)
[2019-11-02] MEDS: FAMOTIDINE 20 MG TABLET PO SCH (09:35)
[2019-11-02] MEDS: FLECAINIDE ACETATE 50 MG TABLET PO SCH ×2 (09:36→22:29)
[2019-11-02] MEDS: FUROSEMIDE 40 MG/4 ML INJECTABLE VIAL IVPUSH SCH (10:08)
--- NOTE | 2019-11-02 10:31 | PN ---
Progress Note (short form) - Note Progress Note: s: no cp palps dizzy; sob and le edema resolved, feels back to baseline Current Medications Generic Name Dose Route Start Last Admin Trade Name Martha PRN Reason Stop Dose Admin Famotidine 20 mg 10/31/19 10:00 11/02/19 09:35 Pepcid - PO 20 mg DAILY [facility] Administration Ferrous Sulfate 325 mg 10/31/19 10:00 11/02/19 09:34 Feosol - PO 325 mg DAILY [facility] Administration Flecainide Acetate 50 mg 10/30/19 22:00 11/02/19 09:36 Tambacor - PO 50 mg BID [facility] Administration Furosemide 40 mg 10/31/19 10:00 11/02/19 10:08 Lasix Injection - IVPUSH 11/02/19 14:00 40 mg DAILY [facility] Administration Furosemide 20 mg 11/03/19 10:00 Lasix - PO DAILY [facility] Ceftriaxone Sodium 1 gm/ 50 mls @ 100 mls/hr 10/31/19 10:00 11/02/19 09:32 Dextrose IVPB 100 mls/hr DAILY [facility] Administration Losartan Potassium 50 mg 10/30/19 17:30 11/02/19 09:34 Cozaar - PO 50 mg DAILY [facility] Administration Metoprolol Succinate 25 mg 11/01/19 10:00 11/02/19 09:34 Toprol Xl - PO 25 mg DAILY [facility] Administration Multivitamins/Minerals 1 each 10/31/19 10:00 11/02/19 09:34 Theragran-M PO 1 each DAILY [facility] Administration Non-Formulary Medication 1 mg 10/31/19 10:00 Finasteride [Propecia] PO DAILY [facility] Potassium Chloride 40 meq 10/31/19 10:00 11/02/19 09:33 K-Dur - PO 40 meq DAILY [facility] Administration Rivaroxaban 20 mg 10/31/19 18:00 11/01/19 17:31 Xarelto PO 20 mg DAILY@1800 [facility] Administration Vital Signs Period Temp Pulse Resp BP Sys/Armstrong Pulse Ox Last 24 Hr 98.4 F-99.1 F 82-104 18-20 130-154/75-90 93 Constitutional: Yes: No Distress, Calm Eyes: Yes: Conjunctiva Clear HENT: Yes: Atraumatic Respiratory: Yes: cta bl nl eff Gastrointestinal: Yes: Soft JVD: No Carotid Bruit: No Heart Sounds: Yes: S1, S2 (irreg) Edema: no le edema Neurological: Yes: Alert, Oriented - Other Data Labs, Other Data: CBC, BMP 11/02/19 05:55 11/02/19 05:55 EKG: nsr, rate in 80's, w/ TWI in lateral leads, new from previous. qtc 515ms tele: afib, rate ok Imaging - Results Chest X-ray: Image Reviewed (CHF) EKG: Image Reviewed Assessment/Plan IMP: Permanent AF Acute on chronic CHF (systolic v Diastolic) Abnl ECG, NSST changes, prolonged QT PAD REC: 1. Tele shows rate controlled af, cont bb 2. echo here with nl lvef 3. after iv lasix vol improved, can change to po lasix for tomorrow 3. Cont Xarelto 4. Vascular consulted for b/l PAD.
--- NOTE | 2019-11-02 12:11 | PN ---
Progress Note, Physician History of Present Illness: Patient seen and examined at bedside. States she feels well. She denies nausea vomiting fever chills chest pain or SOB. No Dysuria. UCx with pansensitive E. Coli. - Current Medication List Current Medications: Active Medications Famotidine (Pepcid -) 20 mg PO DAILY [facility] Last Admin: 11/02/19 09:35 Dose: 20 mg Ferrous Sulfate (Feosol -) 325 mg PO DAILY [facility] Last Admin: 11/02/19 09:34 Dose: 325 mg Flecainide Acetate (Tambacor -) 50 mg PO BID [facility] Last Admin: 11/02/19 09:36 Dose: 50 mg Furosemide (Lasix Injection -) 40 mg IVPUSH DAILY [facility] Stop: 11/02/19 14:00 Last Admin: 11/02/19 10:08 Dose: 40 mg Furosemide (Lasix -) 20 mg PO DAILY [facility] Ceftriaxone Sodium 1 gm/ (Dextrose) 50 mls @ 100 mls/hr IVPB DAILY [facility] Last Admin: 11/02/19 09:32 Dose: 100 mls/hr Losartan Potassium (Cozaar -) 50 mg PO DAILY [facility] Last Admin: 11/02/19 09:34 Dose: 50 mg Metoprolol Succinate (Toprol Xl -) 25 mg PO DAILY [facility] Last Admin: 11/02/19 09:34 Dose: 25 mg Multivitamins/Minerals (Theragran-M) 1 each PO DAILY [facility] Last Admin: 11/02/19 09:34 Dose: 1 each Non-Formulary Medication (Finasteride [Propecia]) 1 mg PO DAILY [facility] Potassium Chloride (K-Dur -) 40 meq PO DAILY [facility] Last Admin: 11/02/19 09:33 Dose: 40 meq Rivaroxaban (Xarelto) 20 mg PO DAILY@1800 [facility] Last Admin: 11/01/19 17:31 Dose: 20 mg - Objective Vital Signs: Vital Signs Temperature 97.8 F 11/02/19 09:00 Pulse Rate 90 11/02/19 09:00 Respiratory Rate 18 11/02/19 09:00 Blood Pressure 151/83 11/02/19 09:00 O2 Sat by Pulse Oximetry (%) 93 L 11/01/19 21:00 PE: Constitutional: Yes: Thin Eyes: Yes: EOM Intact, Other (pallor of conjunctiva) Neck: Yes: Supple Cardiovascular: Yes: Regular Rate and Rhythm, Murmur (systolic 3/6 RUSB) Respiratory: Yes: Diminished, Poor Air Entry, Other (crackles at bases) Gastrointestinal: Yes: Soft, Other (no longer suprapubic tenderness) Genitourinary: No: CVA Tenderness - Left, CVA Tenderness - Right Extremities: Yes: Other (evidence of stasis dermatitis of lower extremities L>R) Edema: No Edema: LLE: 0, RLE: 0 Peripheral Pulses: Left Doralis Pedis: 0, Right Dorsalis Pedis: 0 Neurological: Yes: Alert. No: Oriented (Patient thinks it is 2013 and states it is almost november. She thinks she is at [facility]) ...Motor Strength: LLE (able to lift both legs up at the hip joint without pain) , RLE Labs: CBC, BMP 11/02/19 05:55 11/02/19 05:55 INR, PTT INR 1.43 (0.83-1.09) H 10/30/19 15:25 Impression/Plan Impression/Plan: 88 y/o F with PMH HTN, afib (on xarelto), chronic thrombocytopenia, CVA 2011, GERD, osteoperosis, actinic keratoses, carotid stenosis (75% occlusion last one) , presents with lower extremity edema. Lower extremity edema acute on chronic CHF exacerbation Echo noted to have normal LVEF Got IV lasix today and now will stop and start 20mg PO lasix starting tomorrow AM hypokalemia resolved cardiology consult noted and appreciated UTI-symptomatic positive UA and UCx with pansensitive E. Coli de-escalate to ancef while hospitalized which will start tomorrow as patient already got ceftriaxone and can DC on Keflex to complete 7 day course when ready for discharge today is day 4 of ABx (4 days of ceftriaxone including today) duplex LE, arterial duplex - with decreased flow bilaterally vascular: Dr. Ortega-pending HTN controlled once she gets the AM meds continue losartan and metoprolol permanent afib controlled on telemetry flecainide for control metoprolol started on this admission continue xarelto GERD pepcid Iron deficiency anemia c/w ferrous sulfate trend CBC-Hb stable FEN: no IVF hypokalemia resolved will change standing 40meq of potassium daily to 20meq daily since lasix is decreased and porassium is 4.2 today sodium controlled diet PPX DVT: on xarelto. GI: On pepcid PT consult D/C pending vascular evaluation Visit type - Emergency Visit Emergency Visit: Yes ED Registration Date: 10/30/19 Care time: The patient presented to the Emergency Department on the above date and was hospitalized for further evaluation of their emergent condition. - New Patient This patient is new to me today: No - Critical Care Critical Care patient: No
[2019-11-02 15:34] VITALS: BMI 15.4
[2019-11-02] MEDS: RIVAROXABAN 20 MG TABLET PO SCH (18:12)
[2019-11-03 07:13] LABS: BLOOD UREA NITROGEN 14.2 mg/dL (7-18); CALCIUM 8.7 mg/dL (8.5-10.1); CREATININE 0.5 mg/dL (0.55-1.3); POTASSIUM 3.8 mmol/L (3.5-5.1)
[2019-11-03] MEDS ORDERED: PT OWN MED DRAWER 7, Y5N ONE (09:05)
[2019-11-03] MEDS ORDERED: ceFAZolin SODIUM 1 GM VIAL ONE ×2 (09:05→16:55)
[2019-11-03] MEDS ORDERED: DEXTROSE 5%-WATER - 50 ML IVPB ONE ×2 (09:05→16:55)
[2019-11-03] MEDS: MULTIVITAMINS THER W-MINERALS COMBO TABLET (FP) PO SCH (09:48)
[2019-11-03] MEDS: metoPROLOL SUCCINATE 25 MG TAB.SR.24H (FP) PO SCH ×2 (09:48→21:59)
[2019-11-03] MEDS: FERROUS SO4 325 MG TABLET (FP) PO SCH (09:48)
[2019-11-03] MEDS: CEFAZOLIN 1 GM in DEXTROSE 5%-WATER - 50 ML IVPB SCH ×2 (09:48→17:34)
[2019-11-03] MEDS: FUROSEMIDE 20 MG TABLET (FP) PO SCH (09:48)
[2019-11-03] MEDS: FAMOTIDINE 20 MG TABLET PO SCH (09:48)
[2019-11-03] MEDS: POTASSIUM CHLORIDE TABS 20 MEQ TABLET.ER (FP) PO SCH (09:49)
[2019-11-03] MEDS: LOSARTAN POTASSIUM 50 MG TABLET (FP) PO SCH (09:50)
--- NOTE | 2019-11-03 10:02 | PN ---
Progress Note, Physician Chief Complaint: afib History of Present Illness: no sob, orthopnea. no leg swelling. no palpitations, cp - Current Medication List Current Medications: Active Medications Famotidine (Pepcid -) 20 mg PO DAILY [facility] Last Admin: 11/03/19 09:48 Dose: 20 mg Ferrous Sulfate (Feosol -) 325 mg PO DAILY [facility] Last Admin: 11/03/19 09:48 Dose: 325 mg Flecainide Acetate (Tambacor -) 50 mg PO BID [facility] Last Admin: 11/02/19 22:29 Dose: 50 mg Furosemide (Lasix -) 20 mg PO DAILY [facility] Last Admin: 11/03/19 09:48 Dose: 20 mg Cefazolin Sodium 1 gm/ (Dextrose) 50 mls @ 100 mls/hr IVPB Q8H-IV [facility] Last Admin: 11/03/19 09:48 Dose: 100 mls/hr Losartan Potassium (Cozaar -) 50 mg PO DAILY [facility] Last Admin: 11/03/19 09:50 Dose: 50 mg Metoprolol Succinate (Toprol Xl -) 25 mg PO DAILY [facility] Last Admin: 11/03/19 09:48 Dose: 25 mg Multivitamins/Minerals (Theragran-M) 1 each PO DAILY [facility] Last Admin: 11/03/19 09:48 Dose: 1 each Non-Formulary Medication (Finasteride [Propecia]) 1 mg PO DAILY [facility] Potassium Chloride (K-Dur -) 20 meq PO DAILY [facility] Last Admin: 11/03/19 09:49 Dose: 20 meq Rivaroxaban (Xarelto) 20 mg PO DAILY@1800 [facility] Last Admin: 11/02/19 18:12 Dose: 20 mg - Objective Vital Signs: Vital Signs Temperature 98.0 F 11/03/19 01:00 Pulse Rate 86 11/03/19 01:00 Respiratory Rate 18 11/03/19 01:00 Blood Pressure 150/70 11/03/19 01:00 O2 Sat by Pulse Oximetry (%) 97 11/02/19 21:00 Constitutional: Yes: Well Nourished, No Distress, Calm Cardiovascular: Yes: Pulse Irregular, S1, S2. No: JVD, Gallop, Murmur Respiratory: Yes: Regular, CTA Bilaterally. No: Accessory Muscle Use Extremities: No: Cold Edema: No Neurological: Yes: Alert, Oriented Psychiatric: No: Agitated Labs: CBC, BMP 11/02/19 05:55 11/03/19 06:00 INR, PTT INR 1.43 (0.83-1.09) H 10/30/19 15:25 Assessment/Plan Echo 11/06: EF nl 50-55%, mild apical-septal hypokinesis, mild-mod AI tele: AF, HR overall well controlled; artifact IMP: Permanent AF Regional wall motion abnormality on echo (apical-septal), deep TWIs more pronounced than priors Acute on chronic CHF (diastolic) Abnl ECG, NSST changes, prolonged QT PAD anemia HTN REC: 1. AF rates controlled, cont bb. if she remains in persistent afib here, would be siegel to reassess utility of continued flecainide use, although in absence of any toxicity concerns, this is best left to her outpatient special education para professional ( flecainide does not prolong QT michael at such low dose) 2. echo here with preserved overall lvef 3. diuresed with lasix 40 iv qd--changed to 20 po 3. Cont Xarelto 4. Vascular consulted for b/l PAD. 5. repeat ECG for QT monitoring, optimize K/Mag at usual targets 6. Small RWMA noted on echo (apex), with ECG changes vs prior potentially ischemic (deep TWI's, prolonged QT), neg troponins--rec pharm MPI to r/o ischemia. if + ischemia, then will have to stop Ic agent (flecainide) 7. hgb stable at baseline (8s-9s), cont AC--workup per pmd 8. BP suboptimal--increase metoprolol to 25 bid 9. sees special education para professional in [facility]son[facility] practice, cannot recall name--rec outpt f/u there within 2-3 wks of discharge
--- NOTE | 2019-11-03 13:21 | EKG ---
Test Reason : Blood Pressure : / mmHG Vent. 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
--- NOTE | 2019-11-03 13:25 | PN ---
Progress Note (short form) - Note Progress Note: Hospitalist Medicine Resting in bed, in good spirits. However, w / prolonged Qtc. D/w cardio; flecainide to be d/c. In persistent afib. For stress test Did well with PT. 60 feet w/ RW Vitals 11/03/19 09:00 Temperature 98.0 F Pulse Rate 81 Respiratory 22 H Rate Blood Pressure 130/82 Physical Exam general: resting comfortably in bed, in NAD heent: NCAT neck: supple cardio: irreg irreg. no r/m/g pulm: CTA b/l. no accessory m usage abdomen: soft, NTND LE: thin . without edema. 1+ pulses Laboratory Tests 11/03/19 06:00 Sodium 141 Potassium 3.8 Chloride 106 Carbon Dioxide 26 BUN 14.2 Creatinine 0.5 L Random Glucose 79 Microbiology 10/30/19 16:08 Urine - Urine Clean Catch Urine Culture - Final Escherichia Coli Imaging 10/31/19: ECHO: mild apical septal hypokinesis, LVSF normal, ef 50-55%, LA mod dilated EKG: nsr, rate in 80's, w/ TWI in lateral leads, new from previous. qtc 515ms CXR: congestive changes, bibasilar effusions, possible PNA on R Duplex LE, art duplex LE: occlusion of R common fem, superficial fem and posterior tibial a. there is decreased monophasic flow in the R popliteal artery. L leg no definite flow in popliteal or posterior tibial arteries. decreased monophasic flow in lower third superficial femoral a. wih somewhat decreased biphasic flow in upper and middle thirds of the superficial femoral a. unremarkable triphasic flow in common femoral a. Assessment/Plan 88 y/o F with PMH HTN, afib (on xarelto), chronic thrombocytopenia, CVA 2011, GERD, osteoperosis, actinic keratoses, carotid stenosis (75% occlusion last one) , s/p fall w/ head laceration 2017, who presents for LE edema. #LE edema r/o CHF -with crackles, elevated BNP ~9000, LE edema may be 2/2 CHF -changed to lasix 20mg PO qd. follow na control/weights/ strict i/o -repeat ECHO result noted -trop (-) x 2 -Cardio consult: Dr. Barber #R/o cardiac ischemia -was seen by cardio on ECHO -f/u pharm MPI testing -still w/ prolonged qtc, flecanide has been d/c -new rate control agent: metoprolol -will need cardio f/u as outpt after #UTI -with +UA, Ucx: michael-sensitive e.coli -was on rocephin (4 days), changed to cefazolin (11/03) #duplex LE, arterial duplex - with decreased flow - vascular consulted - vascular: Dr. Ortega; can f/u as outpatient #HTN- uncontrolled -c/w losartan -hold HCTZ, in setting of lasix to avoid over-diuresis #afib -in consistent afib, with prolonged qtc: flecainide held by cardio -new rate control agent w/ metoprolol -c/w xarelto #GERD -c/w pepcid #KENDRICK -c/w ferrous sulfate #F/E/N no IVF at this time, as w/ hx CHF continue to follow lytes na controlled diet #PPX DVT: on xarelto. #Dispo cont'd monitoring on tele from [facility] home walked well with PT (60 feet w/ RW) pending stress test, qtc monitoring outpt vascular f/u <Sasha Rod - Last Filed: 11/03/19 16:27> - Note Progress Note: Seen and examined; please see resident note for further historical information. I personally verified all pierce historical information and exam findings. Personally interpreted all imaging and diagnostics and reviewed appropriate consults. I reviewed all labs and vital signs as per resident note and EMR as documented. I agree with the above assessment and plan unless supplemented by myself in the following. No new complaints, continuing to monitor on telemetry. We are holding her flecainide and are following up on a stress test to determine if the patient has any ischemia contributing to the prolonged QT syndrome. Should they have ischemia, the flecainide will need to be definitively discontinued. We are trying to go over the entry level project engineer to discuss this with them, pending callback. 10 item review of systems completed and is negative aside from HPI VS, labs, imaging reviewed NAD, AAO, resting comfortably in bed. RRR s1/2 no mgr Normal muscle tone, moves all 5 extremities with normal apparent strength Neck is supple, trachea midline, no martin LN Lungs CTAB with sym expansion NT ND +BS no martin organomegaly CN2-12 wnl; no FND NC AT EOMI PERRLA Normal mood, appropriate behavior, euthymic affect No skin breakdown or rashes noted Lower extremity arterial duplex noted with occlusion of the right common femoral , superficial femoral, and posterior tibial artery. This was discussed with Dr. Ortega, patient can follow-up outpatient with vascular. Assessment and plan: Patient presents with lower extremity edema and is found to have CHF exacerbation, has been diuresed and is pending stress test. Pending conversation with her outpatient entry level project engineer. Problems include: CHF exacerbation, secondary to HFPEF with mild apical septal hypokinesis noted as well as EF normal at 50 to 55% with moderate left atrial dilation which would be expected with her longstanding history of atrial fibrillation. Continue diuresis per cardiology, switching to p.o. as indicated. Prolonged QTC, monitor magnesium and potassium, repeat EKG prior to discharge, if there is an ischemic insight that prompted the prolonged QT syndrome, it would be reasonable to DC flecainide in its entirety. Remains on metoprolol for rate control Atrial fibrillation, permanent, remains on metoprolol and Xarelto with flecainide held by cardio, investigating the cause of the QT prolongation GERD, continuing on Prevacid with no symptoms Hypertension, improved, continuing with losartan, holding HCTZ in the setting of increased Lasix dose. Will clarify dosing of HCTZ and Lasix prior to discharge with cardiology in order to ensure adequate blood pressure control with respect to her volume status Peripheral arterial disease, noted results of duplex above, may follow-up with Dr. Ortega nonurgently as an outpatient. She does develop claudications in terms and we can consider cilostazol if okay with cardiology. Iron deficiency anemia, continuing on Pepcid DVT prophylaxis is sufficiently dealt with with Xarelto <Sunday Noyoal - Last Filed: 11/04/19 16:54>
[2019-11-03] MEDS: RIVAROXABAN 20 MG TABLET PO SCH (17:34)
[2019-11-04] MEDS ORDERED: DEXTROSE 5%-WATER - 50 ML IVPB ONE ×2 (03:03→09:07)
[2019-11-04] MEDS ORDERED: ceFAZolin SODIUM 1 GM VIAL ONE ×2 (03:03→09:07)
[2019-11-04] MEDS: CEFAZOLIN 1 GM in DEXTROSE 5%-WATER - 50 ML IVPB SCH ×2 (03:07→12:04)
[2019-11-04 06:49] LABS: BASO % 0.2 % (0-2.0); EOS % 1.3 % (0-4.5); HEMOGLOBIN 9.5 GM/dL (10.7-15.3); LYMPH % 18.5 % (8-40); MCH 27.1 pg (25.7-33.7); MCHC 32.6 g/dl (32.0-36.0); MEAN CELL VOLUME 83.1 fl (80-96); MEAN PLT VOLUME 8.5 fl (7.5-11.1); PLATELET COUNT 210 K/MM3 (134-434); RBC 3.49 M/mm3 (3.60-5.2); RDW 27.5 % (11.6-15.6); WHITE BLOOD COUNT 4.5 K/mm3 (4.0-10.0)
[2019-11-04 07:27] LABS: BLOOD UREA NITROGEN 19.5 mg/dL (7-18); CALCIUM 8.6 mg/dL (8.5-10.1); CREATININE 0.5 mg/dL (0.55-1.3); MAGNESIUM 2.4 mg/dL (1.8-2.4); PHOSPHOROUS 3.4 mg/dL (2.5-4.9); POTASSIUM 3.7 mmol/L (3.5-5.1)
[2019-11-04] MEDS: metoPROLOL SUCCINATE 25 MG TAB.SR.24H (FP) PO SCH ×2 (09:11→21:50)
[2019-11-04] MEDS: FUROSEMIDE 20 MG TABLET (FP) PO SCH (09:11)
[2019-11-04] MEDS: LOSARTAN POTASSIUM 50 MG TABLET (FP) PO SCH (09:11)
[2019-11-04] MEDS: FAMOTIDINE 20 MG TABLET PO SCH (09:12)
[2019-11-04] MEDS ORDERED: REGADENOSON 0.4 MG/5 ML PRE-FILLED SYRINGE IVPUSH ONE ×2 (09:40→09:45)
[2019-11-04 10:59] LABS: ANISOCYTOSIS 2+; PLATELET ESTIMATE NORMAL
--- NOTE | 2019-11-04 12:02 | PN ---
Progress Note (short form) - Note Progress Note: Hospitalist Medicine Resting in bed, in good spirits. Calls placed to daughter and son without response. Will try back. Stress test completed today Vitals 11/04/19 09:00 Temperature 98.2 F Pulse Rate 75 Respiratory 18 Rate Blood Pressure 161/75 Physical Exam general: resting comfortably in bed, in NAD heent: NCAT neck: supple cardio: irreg irreg. no r/m/g pulm: CTA b/l. no accessory m usage abdomen: soft, NTND LE: thin . without edema. 1+ pulses Laboratory Tests 11/04/19 11/04/19 05:55 05:55 WBC 4.5 Hgb 9.5 L Hct 29.0 L Plt Count 210 D Sodium 140 Potassium 3.7 Chloride 106 Carbon Dioxide 27 BUN 19.5 H Creatinine 0.5 L Est GFR (CKD-EPI)NonAf 86.41 Microbiology 10/30/19 16:08 Urine - Urine Clean Catch Urine Culture - Final Escherichia Coli Imaging 10/31/19: ECHO: mild apical septal hypokinesis, LVSF normal, ef 50-55%, LA mod dilated EKG: nsr, rate in 80's, w/ TWI in lateral leads, new from previous. qtc 515ms CXR: congestive changes, bibasilar effusions, possible PNA on R Duplex LE, art duplex LE: occlusion of R common fem, superficial fem and posterior tibial a. there is decreased monophasic flow in the R popliteal artery. L leg no definite flow in popliteal or posterior tibial arteries. decreased monophasic flow in lower third superficial femoral a. wih somewhat decreased biphasic flow in upper and middle thirds of the superficial femoral a. unremarkable triphasic flow in common femoral a. Assessment/Plan 88 y/o F with PMH HTN, afib (on xarelto), chronic thrombocytopenia, CVA 2011, GERD, osteoperosis, actinic keratoses, carotid stenosis (75% occlusion last one) , s/p fall w/ head laceration 2017, who presents for LE edema. #LE edema r/o CHF -with crackles, elevated BNP ~9000, LE edema may be 2/2 CHF -changed to lasix 20mg PO qd. follow na control/weights/ strict i/o -repeat ECHO result noted -trop (-) x 2 -Cardio consult: Dr. Barber #R/o cardiac ischemia -was seen by cardio on ECHO -f/u pharm MPI testing result -still w/ prolonged qtc, flecanide has been d/c -new rate control agent: metoprolol -will need cardio f/u as outpt after #UTI -with +UA, Ucx: michael-sensitive e.coli -was on rocephin (4 days), changed to cefazolin (11/03) #duplex LE, arterial duplex - with decreased flow - vascular consulted - vascular: Dr. Ortega; can f/u as outpatient #HTN- uncontrolled -c/w losartan -hold HCTZ, in setting of lasix to avoid over-diuresis #afib -in consistent afib, with prolonged qtc: flecainide held by cardio -new rate control agent w/ metoprolol -c/w xarelto #GERD -c/w pepcid #KENDRICK -c/w ferrous sulfate #F/E/N no IVF at this time, as w/ hx CHF continue to follow lytes na controlled diet #PPX DVT: on xarelto. #Dispo cont'd monitoring [facility] walked well with PT (60 feet w/ RW) pending stress test, qtc monitoring outpt vascular f/u <Sasha Rod - Last Filed: 11/04/19 11:59> - Note Progress Note: Seen and examined; please see resident note for further historical information. I personally verified all pierec historical information and exam findings. Personally interpreted all imaging and diagnostics and reviewed appropriate consults. I reviewed all labs and vital signs as per resident note and EMR as documented. I agree with the above assessment and plan unless supplemented by myself in the following. No ischemic cause of the QTc prolongation. Pending final detrmination on flecainide. Monitor on floor on tele; repeat EKG noted. Completing abx ( pansensative EC; no s/s sepsis). PMH HTN, afib (on xarelto), chronic thrombocytopenia, CVA 2012, GERD, osteoperosis, actinic keratoses, carotid stenosis (75% occlusion) discussign with Dr. Montero and will need to ensure OP CV coordination. No chest pain and no complaints. Received call back from OP cardiology, explained that the patient will be kept off of the flecainide indefinitely and will be kept on the metoprolol with the current dose as indicated. Patient's outpatient tire design engineer verbalized understanding and stated that they had not seen the patient in nearly a year. Confirmed that they had follow-up appointment with him scheduled for 2:30 PM on November 14. This was communicated to the patient in the discharge instructions 10 item review of systems completed and is negative aside from HPI VS, labs, imaging reviewed NAD, AAO, resting comfortably in bed. RRR s1/2 no mgr Normal muscle tone, moves all 5 extremities with normal apparent strength Neck is supple, trachea midline, no martin LN Lungs CTAB with sym expansion NT ND +BS no martin organomegaly CN2-12 wnl; no FND NC AT EOMI PERRLA Normal mood, appropriate behavior, euthymic affect No skin breakdown or rashes noted Discussed stress test with Dr. Miller; no ischemic incitus with EF concurring with echo Discussed with Dr. Montero-cleared for discharge. Assessment and plan: stress test negative; clearing for DC with CV and verifying final dose of metoprolol. Problems include: CHF exacerbation, secondary to HF PEF with mild apical septal hypokinesis noted as well as EF normal at 50 to 55% with moderate left atrial dilation which would be expected with her longstanding history of atrial fibrillation. Continue diuresis per cardiology, switching to p.o. as indicated. Prolonged QTC, monitor magnesium and potassium, repeat EKG prior to discharge, if there is an ischemic insight that prompted the prolonged QT syndrome, it would be reasonable to DC flecainide in its entirety. Remains on metoprolol for rate control Atrial fibrillation, permanent, remains on metoprolol and Xarelto with flecainide held by cardio, investigating the cause of the QT prolongation GERD, continuing on Prevacid with no symptoms Hypertension, improved, continuing with losartan, holding HCTZ in the setting of increased Lasix dose. Will clarify dosing of HCTZ and Lasix prior to discharge with cardiology in order to ensure adequate blood pressure control with respect to her volume status Peripheral arterial disease, noted results of duplex above, may follow-up with Dr. Jordan morrell as an outpatient. She does develop claudications in terms and we can consider cilostazol if okay with cardiology. Iron deficiency anemia, continuing on Pepcid DVT prophylaxis is sufficiently dealt with with Xarelto Code status unchanged. <Sunday Noyola - Last Filed: 11/04/19 16:57>
[2019-11-04] MEDS: POTASSIUM CHLORIDE TABS 20 MEQ TABLET.ER (FP) PO SCH (12:04)
[2019-11-04] MEDS: MULTIVITAMINS THER W-MINERALS COMBO TABLET (FP) PO SCH (12:04)
[2019-11-04] MEDS: FERROUS SO4 325 MG TABLET (FP) PO SCH (12:04)
--- NOTE | 2019-11-04 12:36 | PN ---
Progress Note (short form) - Note Progress Note: s: no chest pain, palps, dizziness, dyspnea Current Medications Famotidine (Pepcid -) 20 mg PO DAILY [facility] Last Admin: 11/04/19 09:12 Dose: 20 mg Ferrous Sulfate (Feosol -) 325 mg PO DAILY [facility] Last Admin: 11/04/19 12:04 Dose: 325 mg Furosemide (Lasix -) 20 mg PO DAILY [facility] Last Admin: 11/04/19 09:11 Dose: 20 mg Cefazolin Sodium 1 gm/ (Dextrose) 50 mls @ 100 mls/hr IVPB Q8H-IV [facility] Last Admin: 11/04/19 12:04 Dose: 100 mls/hr Losartan Potassium (Cozaar -) 50 mg PO DAILY [facility] Last Admin: 11/04/19 09:11 Dose: 50 mg Metoprolol Succinate (Toprol Xl -) 25 mg PO BID [facility] Last Admin: 11/04/19 09:11 Dose: 25 mg Multivitamins/Minerals (Theragran-M) 1 each PO DAILY [facility] Last Admin: 11/04/19 12:04 Dose: 1 each Potassium Chloride (K-Dur -) 20 meq PO DAILY [facility] Last Admin: 11/04/19 12:04 Dose: 20 meq Rivaroxaban (Xarelto) 20 mg PO DAILY@1800 [facility] Last Admin: 11/03/19 17:34 Dose: 20 mg Vital Signs Period Temp Pulse Resp BP Sys/Armstrong Pulse Ox Last 24 Hr 98.0 F-98.3 F 68-89 16-18 117-161/58-78 98-98 Constitutional: Yes: Well Nourished, No Distress, Calm Cardiovascular: Yes: Pulse Irregular, S1, S2. No: JVD, Gallop, Murmur Respiratory: Yes: Regular, CTA Bilaterally. No: Accessory Muscle Use Extremities: No: Cold Edema: No Neurological: Yes: Alert, Oriented Psychiatric: No: Agitated no jaundice, diaphoresis Assessment/Plan Echo 11/06: EF nl 50-55%, mild apical-septal hypokinesis, mild-mod AI tele: AF, HR overall well controlled; artifact IMP: Permanent AF Regional wall motion abnormality on echo (apical-septal), deep TWIs more pronounced than priors Acute on chronic CHF (diastolic) Abnl ECG, NSST changes, prolonged QT PAD anemia HTN REC: 1. AF rates controlled, cont bb. if she remains in persistent afib here, would be siegel to reassess utility of continued flecainide use, although in absence of any toxicity concerns, this is best left to her outpatient weaver [place] ( flecainide does not prolong QT michael at such low dose) 2. echo here with preserved overall lvef 3. diuresed with lasix 40 iv qd--changed to 20 po 3. Cont Xarelto 4. Vascular consulted for b/l PAD. 5. repeat ECG with prolonged QTc, similar to prior. optimize K/Mag at usual targets 6. Small RWMA noted on echo (apex), with ECG changes vs prior potentially ischemic (deep TWI's, prolonged QT), neg troponins - repeat EKG 11/03 similar --s/p mibi today. if + ischemia, then will have to stop Ic agent (flecainide) 7. hgb stable at baseline (8s-9s), cont AC--workup per pmd 8. BP suboptimal- metoprolol increased, monitor BP, may need further uptitration of meds 9. sees weaver [place] in [facility] practice, cannot recall name--rec outpt f/u there within 2-3 wks of discharge 10. flecanide held as can rarely prolong QTc
[2019-11-04] MEDS: RIVAROXABAN 20 MG TABLET PO SCH (17:31)
--- NOTE | 2019-11-04 18:25 | DS ---
Addendum entered and electronically signed by Sasha Rod, RESIDENT 11/05/19 19 :09: Pt seen and examined today, without changes in status. Flecainide still held, rate controlled w/ metoprolol. Discussed with family. Plan is for pt to go english home; referral sent Original Note: Physical Exam: SUBJECTIVE: Patient seen and examined at bedside. Discussed case w/ son. Leaving in AM. Last EKG reviewed; improved qtc 501ms. Will need close f/u on d/ c. Pt has a cardio appt scheduled, please see d/c OBJECTIVE: Vital Signs Period Temp Pulse Resp BP Sys/Armstrong Pulse Ox Last 24 Hr 98.0 F-98.4 F 68-89 16-18 146-161/58-75 98-98 Physical Exam general: resting comfortably in bed, in NAD heent: NCAT neck: supple cardio: irreg irreg. no r/m/g pulm: CTA b/l. no accessory m usage abdomen: soft, NTND LE: thin . without edema. 1+ pulses LABS Laboratory Results - last 24 hr 11/04/19 11/04/19 05:55 05:55 WBC 4.5 RBC 3.49 L Hgb 9.5 L Hct 29.0 L MCV 83.1 MCH 27.1 MCHC 32.6 RDW 27.5 H Plt Count 210 D MPV 8.5 Absolute Neuts (auto) 3.0 Neutrophils % 65.0 Lymphocytes % 18.5 D Monocytes % 15.0 H Eosinophils % 1.3 D Basophils % 0.2 Nucleated RBC % 0 Platelet Estimate Normal Anisocytosis 2+ Schistocytes 1+ Sodium 140 Potassium 3.7 Chloride 106 Carbon Dioxide 27 Anion Gap 8 BUN 19.5 H Creatinine 0.5 L Est GFR (CKD-EPI)AfAm 100.15 Est GFR (CKD-EPI)NonAf 86.41 Random Glucose 85 Calcium 8.6 Phosphorus 3.4 Magnesium 2.4 10/30/19 10/31/19 11/02/19 15:25 06:07 05:55 WBC 5.8 4.8 5.3 Hgb 9.9 L 8.7 L 9.1 L Hct 31.1 L D 26.6 L 28.3 L Plt Count 152 D 138 166 D 11/04/19 05:55 WBC 4.5 Hgb 9.5 L Hct 29.0 L Plt Count 210 D 10/30/19 15:25 PT with INR 16.90 H INR 1.43 H PTT (Actin FS) 35.8 10/31/19 11/01/19 11/02/19 06:07 06:05 05:55 Sodium 141 138 138 Potassium 3.1 L 3.3 L 4.2 Chloride 106 104 105 Carbon Dioxide 26 26 26 BUN 13.8 10.6 12.3 Creatinine 0.6 0.4 L 0.4 L 11/03/19 11/04/19 06:00 05:55 Sodium 141 140 Potassium 3.8 3.7 Chloride 106 106 Carbon Dioxide 26 27 BUN 14.2 19.5 H Creatinine 0.5 L 0.5 L 10/31/19 20:45 Creatine Kinase 50 Troponin I < 0.02 10/30/19 16:08 Urine Blood 1+ H Urine Nitrite Positive H Urine Bilirubin Negative Urine Urobilinogen 1.0 Ur Leukocyte Esterase Trace Urine Bacteria (Auto) 2244.9 Microbiology 10/30/19 16:08 Urine - Urine Clean Catch Urine Culture - Final Escherichia Coli Imaging 10/31/19: ECHO: mild apical septal hypokinesis, LVSF normal, ef 50-55%, LA mod dilated EKG: nsr, rate in 80's, w/ TWI in lateral leads, new from previous. qtc 515ms CXR: congestive changes, bibasilar effusions, possible PNA on R Duplex LE, art duplex LE: occlusion of R common fem, superficial fem and posterior tibial a. there is decreased monophasic flow in the R popliteal artery. L leg no definite flow in popliteal or posterior tibial arteries. decreased monophasic flow in lower third superficial femoral a. wih somewhat decreased biphasic flow in upper and middle thirds of the superficial femoral a. unremarkable triphasic flow in common femoral a. HOSPITAL COURSE: Date of Admission:10/30/19 Date of Discharge: 11/04/19 88 y/o F with PMH HTN, afib (on xarelto), chronic thrombocytopenia, CVA 2011, GERD, osteoperosis, actinic keratoses, carotid stenosis (75% occlusion last one) , s/p fall w/ head laceration 2017, who presents for LE edema. #LE edema r/o CHF -with crackles, elevated BNP ~9000, LE edema may be 2/2 CHF -changed to lasix 20mg PO qd on d/c. follow na control/weights/ strict i/o -repeat ECHO result noted -trop (-) x 2 #R/o cardiac ischemia -was seen by cardio on ECHO -pharm MPI; without evidence of ischemia -improved qtc on d/c, however per cardio, flecanide has been d/c -new rate control agent: metoprolol. to continue on during d/c -will need cardio f/u as outpt after - has cardio appt scheduled. please see dc instructions below. #UTI -with +UA, Ucx: michael-sensitive e.coli -completed 6 days abx (rocephin + cefazolin). monitor off abx #duplex LE, arterial duplex - with decreased flow - vascular consulted - vascular: Dr. Ortega; will f/u as outpatient #HTN- uncontrolled -c/w losartan -c/w HCTZ #afib -flecainide held by cardio -new rate control agent w/ metoprolol; has been rate controlled on d/c. -c/w xarelto #GERD -c/w pepcid #KENDRICK -c/w ferrous sulfate Minutes to complete discharge: 45 <Sasha Rod - Last Filed: 11/04/19 18:25> Physical Exam: SUBJECTIVE: Patient seen and examined OBJECTIVE: Vital Signs Period Temp Pulse Resp BP Sys/Armstrong Pulse Ox Last 24 Hr 97.8 F-98.5 F 70-82 17-20 121-165/58-89 96-97 PHYSICAL EXAM GENERAL: The patient is awake, alert, and fully oriented, in no acute distress. HEAD: Normal with no signs of trauma. EYES: PERRL, extraocular movements intact, sclera anicteric, conjunctiva clear. ENT: Ears normal, nares patent, oropharynx clear without exudates, moist mucous membranes. NECK: Trachea midline, full range of motion, supple. LUNGS: Breath sounds equal, clear to auscultation bilaterally, no wheezes, no crackles, no accessory muscle use. HEART: Regular rate and rhythm, S1, S2 without murmur, rub or gallop. ABDOMEN: Soft, nontender, nondistended, normoactive bowel sounds, no guarding, no rebound, no hepatosplenomegaly, no masses. EXTREMITIES: 2+ pulses, warm, well-perfused, no edema. NEUROLOGICAL: Cranial nerves II through XII grossly intact. Normal speech, gait not observed. PSYCH: Normal mood, normal affect. SKIN: Warm, dry, normal turgor, no rashes or lesions noted. LABS HOSPITAL COURSE: Date of Admission:10/30/19 Date of Discharge: 11/06/19 <Sunday Noyola - Last Filed: 11/06/19 07:16> Discharge Summary Problems reviewed: Yes Reason For Visit: UTI HEART FAILURE Current Active Problems Heart failure (Acute) UTI (urinary tract infection) (Acute) - Home Medications Comprehensive Discharge Medication List: Ambulatory Orders Finasteride [Propecia] 1 mg PO DAILY 09/05/13 Rivaroxaban [Xarelto -] 20 mg PO DAILY 09/05/13 Acetaminophen [Tylenol .Regular Strength -] 650 mg PO Q6H PRN tablet 08/07/19 Famotidine 20 mg PO DAILY 10/30/19 Ferrous Sulfate 325 mg PO DAILY 10/30/19 Hydrochlorothiazide 25 mg PO DAILY 10/30/19 Losartan Potassium 50 mg PO DAILY 10/30/19 Meloxicam [Mobic] 15 mg PO DAILY 10/30/19 Multivit-Min/FA/Lycopen/Lutein [Centrum Silver Tablet] 1 each PO DAILY 10/30/19 Furosemide [Lasix -] 20 mg PO DAILY 30 Days #30 tablet 11/04/19 Metoprolol Succinate [Toprol XL -] 25 mg PO BID #60 tab.sr.24h 11/04/19 Potassium Chloride [K-Dur -] 20 meq PO DAILY tablet.er 11/04/19 <Sasha Rod - Last Filed: 11/04/19 18:25> Current Active Problems Heart failure (Acute) UTI (urinary tract infection) (Acute) - Home Medications Comprehensive Discharge Medication List: Ambulatory Orders Finasteride [Propecia] 1 mg PO DAILY 09/05/13 Rivaroxaban [Xarelto -] 20 mg PO DAILY 09/05/13 Acetaminophen [Tylenol .Regular Strength -] 650 mg PO Q6H PRN tablet 08/07/19 Famotidine 20 mg PO DAILY 10/30/19 Ferrous Sulfate 325 mg PO DAILY 10/30/19 Hydrochlorothiazide 25 mg PO DAILY 10/30/19 Losartan Potassium 50 mg PO DAILY 10/30/19 Meloxicam [Mobic] 15 mg PO DAILY 10/30/19 Multivit-Min/FA/Lycopen/Lutein [Centrum Silver Tablet] 1 each PO DAILY 10/30/19 Furosemide [Lasix -] 20 mg PO DAILY 30 Days #30 tablet 11/04/19 Metoprolol Succinate [Toprol XL -] 25 mg PO BID #60 tab.sr.24h 11/04/19 Potassium Chloride [K-Dur -] 20 meq PO DAILY tablet.er 11/04/19 <Sunday Noyola - Last Filed: 11/06/19 07:16> Condition: Stable - Instructions Diet, Activity, Other Instructions: You were in the hospital because you were overloaded with fluid. You were seen by a accounts receivable assistant and diuresed. You improved and are being sent home. while you were in the hospital, you also underwent a stress test. This did not show ischemia and was within normal limits. While you were here, the accounts receivable assistant discontinued your flecanide (anti-arrhythmic heart medicine) because it caused your Qtc to be prolonged. This is a portion of your EKG. You were also treated for a urinary tract infection (UTI). You have completed six days of antibiotics and are complete. Medications 1. You have been started on lasix 20mg daily. Take every day. 2. You have been started on metoprolol succinate 25mg TWICE a day. Take this amount daily 3. FLECAINIDE HAS BEEN DISCONTINUED! Do NOT take! 4. DO NOT TAKE CELEXA THIS CAN ALSO PROLONG YOUR QTc. This has been discontinued from your list. Testing You will need a repeat EKG in 2-3 days, in order to check your qtc because it was prolonged when you were here. THIS IS VERY IMPORTANT Please avoid salty foods, and do not drink too much water or it will cause you to retain more fluid. It is important to weigh yourself daily, if you notice that you are gaining a lot of weight, this may mean that you need to have your lasix (water pill) dose adjusted by your primary care doctor OR accounts receivable assistant. Follow-up appointments Please follow up with the following doctors upon your discharge: -Dr. Montague in 3-5 days - your primary care doctor, to discuss your visit. You MUST undergo repeat EKG testing. Very, very important -Dr. Barber, the accounts receivable assistant- you saw in the hospital - 1 week to discuss your visit -Dr. Sergio Trent, your accounts receivable assistant - You have an appointment scheduled for 11/14/19 at 2:30PM. This has been scheduled with Dr. Trent's office. -Dr. Ortega, a vascular doctor - 1 week to discuss your visit. You will need to discuss your arterial duplex study and decreased flow Referrals: Dr. Sergio Trent [Other] - 11/14/19 2:30 pm Robbie Montague [Primary Care Provider] - 11/06/19 Terry Barber MD [Staff Physician] - 1 Week Amador Ortega DO [Staff Physician] - 1 Week Disposition: VNS/HOME HEALTH CARE This patient is new to me today: No Emergency Visit: No Critical Care patient: No - Discharge Referral Referred to [facility] No <Sasha Rod - Last Filed: 11/04/19 18:25> ATTENDING PHYSICIAN STATEMENT I saw and evaluated the patient. I reviewed the resident's note and discussed the case with the resident. I agree with the resident's findings and plan as documented. SUBJECTIVE: OBJECTIVE: ASSESSMENT AND PLAN: <Sunday Noyola - Last Filed: 11/06/19 07:16>
[2019-11-05 06:33] LABS: BASO % 0.4 % (0-2.0); EOS % 1.8 % (0-4.5); HEMATOCRIT 30.8 % (32.4-45.2); HEMOGLOBIN 9.9 GM/dL (10.7-15.3); LYMPH % 21.1 % (8-40); MCH 26.8 pg (25.7-33.7); MCHC 32.1 g/dl (32.0-36.0); MEAN CELL VOLUME 83.4 fl (80-96); MEAN PLT VOLUME 8.4 fl (7.5-11.1); MONO % 14.5 % (3.8-10.2); NEUT % 62.2 % (42.8-82.8); PLATELET COUNT 234 K/MM3 (134-434); RBC 3.69 M/mm3 (3.60-5.2); RDW 27.3 % (11.6-15.6); WHITE BLOOD COUNT 4.3 K/mm3 (4.0-10.0)
[2019-11-05 07:03] LABS: BLOOD UREA NITROGEN 18.1 mg/dL (7-18); CALCIUM 8.8 mg/dL (8.5-10.1); CREATININE 0.5 mg/dL (0.55-1.3); MAGNESIUM 2.2 mg/dL (1.8-2.4); PHOSPHOROUS 3.3 mg/dL (2.5-4.9); POTASSIUM 4.2 mmol/L (3.5-5.1)
[2019-11-05] MEDS: POTASSIUM CHLORIDE TABS 20 MEQ TABLET.ER (FP) PO SCH (10:09)
[2019-11-05] MEDS: FAMOTIDINE 20 MG TABLET PO SCH (10:11)
[2019-11-05] MEDS: metoPROLOL SUCCINATE 25 MG TAB.SR.24H (FP) PO SCH ×2 (10:11→21:48)
[2019-11-05] MEDS: LOSARTAN POTASSIUM 50 MG TABLET (FP) PO SCH (10:11)
[2019-11-05] MEDS: FUROSEMIDE 20 MG TABLET (FP) PO SCH (10:11)
[2019-11-05] MEDS: MULTIVITAMINS THER W-MINERALS COMBO TABLET (FP) PO SCH (10:11)
[2019-11-05] MEDS: FERROUS SO4 325 MG TABLET (FP) PO SCH (10:12)
--- NOTE | 2019-11-05 11:55 | PN ---
Progress Note (short form) - Note Progress Note: s: no chest pain, palps, dizziness, dyspnea Current Medications Famotidine (Pepcid -) 20 mg PO DAILY [facility] Last Admin: 11/05/19 10:11 Dose: 20 mg Ferrous Sulfate (Feosol -) 325 mg PO DAILY [facility] Last Admin: 11/05/19 10:12 Dose: 325 mg Furosemide (Lasix -) 20 mg PO DAILY [facility] Last Admin: 11/05/19 10:11 Dose: 20 mg Losartan Potassium (Cozaar -) 50 mg PO DAILY [facility] Last Admin: 11/05/19 10:11 Dose: 50 mg Metoprolol Succinate (Toprol Xl -) 25 mg PO BID [facility] Last Admin: 11/05/19 10:11 Dose: 25 mg Multivitamins/Minerals (Theragran-M) 1 each PO DAILY [facility] Last Admin: 11/05/19 10:11 Dose: 1 each Potassium Chloride (K-Dur -) 20 meq PO DAILY [facility] Last Admin: 11/05/19 10:09 Dose: 20 meq Rivaroxaban (Xarelto) 20 mg PO DAILY@1800 [facility] Last Admin: 11/04/19 17:31 Dose: 20 mg Vital Signs Period Temp Pulse Resp BP Sys/Armstrong Pulse Ox Last 24 Hr 98.1 F-98.4 F 72-84 16-20 126-154/59-84 97 Constitutional: Yes: Well Nourished, No Distress, Calm Cardiovascular: Yes: Pulse Irregular, S1, S2. No: JVD, Gallop, Murmur Respiratory: Yes: Regular, CTA Bilaterally. No: Accessory Muscle Use Extremities: No: Cold Edema: No Neurological: Yes: Alert, Oriented Psychiatric: No: Agitated no jaundice, diaphoresis Assessment/Plan Echo 11/06: EF nl 50-55%, mild apical-septal hypokinesis, mild-mod AI mibi 10/2019 no ischemia, nl EF IMP: Permanent AF Regional wall motion abnormality on echo (apical-septal), deep TWIs more pronounced than priors Acute on chronic CHF (diastolic) Abnl ECG, NSST changes, prolonged QT PAD anemia HTN REC: 1. AF rates controlled, cont bb. flecanide held here as can rarely prolong QTc and has remained in afib, has outpatient follow up scheduled with therapeutic massage technician 2. echo here with preserved overall lvef 3. diuresed with lasix 40 iv qd--changed to 20 po 3. Cont Xarelto 4. Vascular consulted for b/l PAD. 5. repeat ECG with prolonged QTc, similar to prior. optimize K/Mag at usual targets 6. Small RWMA noted on echo (apex), with ECG changes vs prior potentially ischemic (deep TWI's, prolonged QT), neg troponins - repeat EKG 11/03 similar --mibi here no ischemia, nl LV function 7. hgb stable at baseline (8s-9s), cont AC--workup per pmd 8. BP improved with increased metoprolol dose 9. stable for dc from cardiac perspective, sees therapeutic massage technician in [facility]md dr davidson 's practice, cannot recall name-- outpt f/u within 2-3 wks of discharge
--- NOTE | 2019-11-05 12:39 | EKG ---
Test Reason : Blood Pressure : / mmHG Vent. Rate : 076 BPM Atrial Rate : 076 BPM P-R Int : 144 ms QRS Dur : 072 ms QT Int : 446 ms P-R-T Axes : 044 123 253 degrees QTc Int : 501 ms NORMAL SINUS RHYTHM RIGHT AXIS DEVIATION PROLONGED QT ABNORMAL ECG WHEN COMPARED WITH ECG OF 03-NOV-2019 11:51, QUESTIONABLE CHANGE IN QRS AXIS T WAVE INVERSION MORE EVIDENT IN LATERAL LEADS Confirmed by MAGGI DRISCOLL, ALIYA ([id number]) on 11/05/2019 12:39:06 PM Referred By: BENJAMIN RACHEL Confirmed By:ALIYA TAY MD
[2019-11-05] MEDS: RIVAROXABAN 20 MG TABLET PO SCH (17:55)
[2019-11-06 06:34] VITALS: TEMP 98.5
[2019-11-06] MEDS: FUROSEMIDE 20 MG TABLET (FP) PO SCH (10:26)
[2019-11-06] MEDS: metoPROLOL SUCCINATE 25 MG TAB.SR.24H (FP) PO SCH (10:26)
[2019-11-06] MEDS: FERROUS SO4 325 MG TABLET (FP) PO SCH (10:27)
[2019-11-06] MEDS: LOSARTAN POTASSIUM 50 MG TABLET (FP) PO SCH (10:27)
[2019-11-06] MEDS: POTASSIUM CHLORIDE TABS 20 MEQ TABLET.ER (FP) PO SCH (10:27)
[2019-11-06] MEDS: FAMOTIDINE 20 MG TABLET PO SCH (10:27)
[2019-11-06] MEDS: MULTIVITAMINS THER W-MINERALS COMBO TABLET (FP) PO SCH (10:27)
--- NOTE | 2019-11-06 11:19 | PN ---
Progress Note (short form) - Note Progress Note: s: no cp palps dizzy; sob and le edema resolved, feels back to baseline Ambulatory Orders Finasteride [Propecia] 1 mg PO DAILY 09/05/13 Rivaroxaban [Xarelto -] 20 mg PO DAILY 09/05/13 Acetaminophen [Tylenol .Regular Strength -] 650 mg PO Q6H PRN tablet 08/07/19 Famotidine 20 mg PO DAILY 10/30/19 Ferrous Sulfate 325 mg PO DAILY 10/30/19 Hydrochlorothiazide 25 mg PO DAILY 10/30/19 Losartan Potassium 50 mg PO DAILY 10/30/19 Meloxicam [Mobic] 15 mg PO DAILY 10/30/19 Multivit-Min/FA/Lycopen/Lutein [Centrum Silver Tablet] 1 each PO DAILY 10/30/19 Furosemide [Lasix -] 20 mg PO DAILY 30 Days #30 tablet 11/04/19 Metoprolol Succinate [Toprol XL -] 25 mg PO BID #60 tab.sr.24h 11/04/19 Potassium Chloride [K-Dur -] 20 meq PO DAILY tablet.er 11/04/19 Vital Signs Period Temp Pulse Resp BP Sys/Armstrong Pulse Ox Last 24 Hr 97.8 F-98.5 F 70-82 17-20 121-165/58-89 96 Constitutional: Yes: No Distress, Calm Eyes: Yes: Conjunctiva Clear HENT: Yes: Atraumatic Respiratory: Yes: cta bl nl eff Gastrointestinal: Yes: Soft JVD: No Carotid Bruit: No Heart Sounds: Yes: S1, S2 (irreg) Edema: no le edema Neurological: Yes: Alert, Oriented - Other Data Labs, Other Data: CBC, BMP 11/05/19 05:45 11/05/19 05:45 Echo 11/06: EF nl 50-55%, mild apical-septal hypokinesis, mild-mod AI mibi 10/2019 no ischemia, nl EF IMP: Permanent AF Regional wall motion abnormality on echo (apical-septal), deep TWIs more pronounced than priors Acute on chronic CHF (diastolic) Abnl ECG, NSST changes, prolonged QT PAD anemia HTN REC: 1. AF rates controlled, cont bb. flecanide held here as can rarely prolong QTc and has remained in afib, has outpatient follow up scheduled with die reamer 2. echo here with preserved overall lvef 3. diuresed with lasix 40 iv qd--changed to 20 po 3. Cont Xarelto 4. Vascular consulted for b/l PAD. 5. repeat ECG with prolonged QTc, similar to prior. optimize K/Mag at usual targets 6. Small RWMA noted on echo (apex), with ECG changes vs prior potentially ischemic (deep TWI's, prolonged QT), neg troponins - repeat EKG 11/03 similar --mibi here no ischemia, nl LV function 7. hgb stable at baseline (8s-9s), cont AC--workup per pmd 8. BP improved with increased metoprolol dose 9. stable for dc from cardiac perspective, sees die reamer in [facility]md dr davidson 's practice, cannot recall name-- outpt f/u within 2-3 wks of discharge
[2019-11-06 17:07] VITALS: BP 140/65; PULSE 74
== END 2019-11-06 10:42 | disposition home health service (06) | DRG 291 ==
LOC: JER 14:18 → JERBED 16:26 → J4W 10-31 18:19 → JERBED 10-31 18:22 → J4W 10-31 19:00
PROVIDERS: ADMIT Internal Medicine; ATTEND Internal Medicine
DX: I11.0 Hypertensive heart disease with heart failure (principal); E43 Unspecified severe protein-calorie malnutrition; I50.33 Acute on chronic diastolic (congestive) heart failure; Z68.1 Body mass index [BMI] 19.9 or less, adult; J98.11 Atelectasis; N39.0 Urinary tract infection, site not specified; I48.21 Permanent atrial fibrillation; E86.0 Dehydration; R62.7 Adult failure to thrive; B96.20 Unspecified Escherichia coli [E. coli] as the cause of diseases classified elsewhere; K21.9 Gastro-esophageal reflux disease without esophagitis; M81.0 Age-related osteoporosis without current pathological fracture; I65.29 Occlusion and stenosis of unspecified carotid artery; D69.6 Thrombocytopenia, unspecified; R94.31 Abnormal electrocardiogram [ECG] [EKG]; L57.0 Actinic keratosis; D50.0 Iron deficiency anemia secondary to blood loss (chronic); I73.9 Peripheral vascular disease, unspecified; Z91.81 History of falling; Z96.642 Presence of left artificial hip joint; Z86.73 Personal history of transient ischemic attack (TIA), and cerebral infarction without residual deficits
CPT/HCPCS: 36415; 71045-TC-FY; 78452-TC; 80048; 80053; 80061; 81003; 82550; 83036; 83721; 83735; 83880; 84100; 84443; 84484; 85025; 85027; 85610; 85730; 87086; 87186; 93005; 93010; 93017; 93306-TC; 93925-TC; 93970-TC; 97116-GP; 97161-GP; 99285-25; A9502; J2785